=== PATIENT | male | born 2000 | race Caucasian/White ===

== ENCOUNTER 2021-06-20 23:39 | Emergency (ER) | payer OTHER, SELFPAY ==
[2021-06-20 23:40] VITALS: BP 135/86; PULSE 140; RESP 16; TEMP 37.3; O2SAT 100; BMI 34.9
--- NOTE | 2021-06-20 23:47 | ECG_ITS ---
APPROVED REPORT Exam: Resting ECG HR:146 bpm ECG Measurements Heart Rate 146 AXES NV 129 P 49 QRSd 89 QRS 52 QT 289 T 116 QTc 373 Conclusion SINUS TACHYCARDIA, POSSIBLE ATRIAL FLUTTER ST DEVIATION AND MODERATE T-WAVE ABNORMALITY, CONSIDER LATERAL ISCHEMIA [-0.1+ mV T-WAVE IN I/aVL/V5/V6] ABNORMAL ECG UNCONFIRMED REPORT Electronically signed by : Al Andrade MD 06/23/2021 17:59:46
--- NOTE | 2021-06-20 23:47 | XR_ITS ---
PROCEDURE INFORMATION: Exam: XR Chest Exam date and time: 06/20/2021 11:45 PM Age: 20 years old Clinical indication: Sternal or substernal pain; Additional info: Chest pain TECHNIQUE: Imaging protocol: XR of the chest. Views: 2 views. COMPARISON: No relevant prior studies available. FINDINGS: Lungs: There is mild pulmonary venous distension. Hazy opacities noted throughout both mid and lower lungs. Pleural spaces: No convincing pleural effusion on either side. Heart/Mediastinum: Prominent transverse cardiac diameter. Vasculature: Mildly prominent azygos arch measures up to 1.2 cm. Bones/joints: Unremarkable. IMPRESSION: Hazy opacities noted throughout both mid to lower lungs with prominent cardiac silhouette. Even in this young patient, heart failure and pulmonary edema are not excluded. Alternatively, findings may represent pneumonitis and pericardial effusion.
[2021-06-21 00:05] LABS: Basophils # 0.2 K/mm3 (0-0.2); Basophils % 2.5 % (0.1-2.0); Eosinophils # 0.1 K/mm3 (0.0-0.4); Eosinophils % 0.9 % (0.1-12.0); Hematocrit 41.9 % (42.0-52.0); Hemoglobin 14.2 g/dL (14.1-18.0); Lymphocytes # 2.9 K/mm3 (0.7-4.5); Lymphocytes % 32.4 % (10-50); Mean Corpuscular HGB Conc 33.8 g/dL (31.8-35.4); Mean Corpuscular Volume 82.7 fl (80-94); Mean Platelet Volume 8.6 fl (7.4-10.4); Monocytes # 0.4 K/mm3 (0.1-1.0); Monocytes % 4.9 % (1.7-9.3); Neutrophils # 5.3 K/mm3 (1.8-7.8); Neutrophils % 59.4 % (37.0-80.0); Platelet Count 428 K/mm3 (142-424); Red Blood Count 5.07 M/mm3 (4.60-6.20); White Blood Count 8.9 K/mm3 (4.8-10.8)
[2021-06-21 00:11] LABS: Alanine Aminotransferase 139 U/L (12-78); Albumin Level 3.7 g/dl (3.5-5.0); Alkaline Phosphatase 55 U/L (38-126); Anion Gap 12.8 mEq/L (5-15); Aspartate Amino Transferase 116 U/L (17-59); Bilirubin,Direct 0.1 mg/dl (0.0-0.4); Bilirubin,Indirect 0.4 mg/dL (0.0-0.9); Bilirubin,Total 0.5 mg/dl (0.2-1.3); Bilirubin,Unconjugated 0.4 mg/dL (0.0-1.1); Blood Urea Nitrogen 13 mg/dl (9-20); Calcium 8.9 mg/dl (8.4-10.2); Carbon Dioxide 22 mmol/L (22.0-30.0); Chloride 108 mmol/L (98-107); Creatinine Clearance Estimated 248 mL/min (50-200); Estimated Glomerular Filt Rate 122 ml/min (>60); GFR (African American) 148 ML/MIN (>60); Glucose 110 mg/dl (74-100); Lactic Acid 1.3 mmol/L (0.7-2.1); Potassium 3.8 mmoL/L (3.5-5.1); Sodium 139 mmol/L (136-145); Total Protein,Serum 6.6 g/dl (6.3-8.2)
[2021-06-21 00:16] LABS: C-Reactive Protein 3.9 mg/L (0-4)
[2021-06-21 00:20] VITALS: BP 109/75; PULSE 127; RESP 33; O2SAT 91
[2021-06-21 00:25] LABS: Troponin I 0.04 ng/ml (0.00-0.034)
[2021-06-21 00:29] LABS: Erythrocyte Sedimentation Rate 16 mm/hr (0-15)
[2021-06-21 00:30] LABS: Procalcitonin 0.042 ng/mL (0.0-2.0)
[2021-06-21 00:50] LABS: Coronavirus 19, PCR Not Detected (NotDetected); Influenza A, PCR Not Detected (NotDetected); Influenza B, PCR Not Detected (NotDetected)
--- NOTE | 2021-06-21 01:07 | PC.NURSE ---
ER speaking with pt at this time
--- NOTE | 2021-06-21 01:40 | HMH.EDCP ---
ED Disposition Clinical Impression: CHF (congestive heart failure) Qualifiers: Heart failure type: unspecified Heart failure chronicity: acute Qualified Code(s): I50.9 - Heart failure, unspecified Disposition: Home, Self-Care Condition on Discharge: Good Instructions: DI for Atypical Chest Pain Additional Instructions: see card at 0900 Referrals: Provider,Referral, [Primary Care Provider] - - Critical Care Critical Care Time: No Attestation: On 06/20/21, the high probability of a clinically significant, sudden or life threatening deterioration of the following system(s) required my full and direct attention, intervention and personal management. The time I documented below is in addition to time spent performing reported procedures but includes the following listed in this critical care notation. Medical Decision Making - Medical Records Medical records reviewed: Yes: I reviewed the patient's medical records. - Jonathan Inquiry Pt receiving controlled substance: No Vital Signs: 06/20/21 23:40 06/21/21 00:20 06/21/21 01:45 Temperature 99.1 F Temperature Source Oral Pulse Rate 127 H 70 Pulse Rate [Left Radial] 140 H Respiratory Rate 16 33 H 27 H Blood Pressure 109/75 L 123/92 H Blood Pressure [Right Arm] 135/86 Blood Pressure Mean [Right Arm] 102 Blood Pressure Source [Right Arm] Automatic Cuff Blood Pressure Position [Right Arm] Sitting 02 Sat by Pulse Oximetry 100 91 L 95 Oxygen Delivery Method Room Air Room Air - Lab Data Lab results reviewed: Yes: I reviewed the patient's lab results. Lab Results 06/20/21 23:50: WBC 8.9, RBC 5.07, Hgb 14.2, Hct 41.9 L, MCV 82.7, MCH 28.0, MCHC 33.8, RDW 14.0, Plt Count 428 H, MPV 8.6, Neut % (Auto) 59.4, Lymph % (Auto) 32.4, [place] % (Auto) 4.9, Eos % (Auto) 0.9, Baso % (Auto) 2.5 H, Neut # (Auto) 5.3, Lymph # (Auto) 2.9, [place] # (Auto) 0.4, Eos # (Auto) 0.1, Baso # (Auto) 0.2, ESR 16 H 06/20/21 23:50: Sodium 139, Potassium 3.8, Chloride 108 H, Carbon Dioxide 22, Anion Gap 12.8, BUN 13, Creatinine 0.80, Estimated Creat Clear 248, Estimated GFR 122, Est GFR ( Amer) 148, Glucose 110 H, Calcium 8.9, Total Bilirubin 0.5, Direct Bilirubin 0.1, Conjugated Bilirubin 0.0, Indirect Bilirubin 0.4, Unconjugated Bilirubin 0.4, AST 116 H, ALT 139 H, Alkaline Phosphatase 55, Troponin I 0.04 H, C-Reactive Protein 3.9, Total Protein 6.6, Albumin 3.7, Procalcitonin 0.042 06/20/21 23:50: Lactate 1.3 06/20/21 23:50: Total Creatine Kinase 153, NT-Pro-B Natriuret Pep 5640 H, Amylase 62, Lipase 78 06/21/21 00:01: SARS-CoV-2 (PCR) Not detected, Influenza A Untype (PCR) Not detected, Influenza Type B (PCR) Not detected 06/21/21 02:30: Troponin I 0.05 H Result diagrams: 06/20/21 23:50 06/20/21 23:50 Orders (Tests/Meds): ED MEDICATIONS Generic Name Dose Route Start Last Admin Trade Name Freq PRN Reason Stop Dose Admin Sodium Chloride 8 ml 06/21/21 01:47 Sodium Chloride 0.9% 10ml Vial IV 07/21/21 01:46 NEEDED PRN dilute pepcid Discontinued Medications Generic Name Dose Route Start Last Admin Trade Name Freq PRN Reason Stop Dose Admin Famotidine 20 mg 06/21/21 01:47 06/21/21 01:53 Famotidine 20mg/2ml Vial IV 06/21/21 01:48 20 mg ONCE ONE Administration Furosemide 40 mg 06/21/21 01:42 06/21/21 01:45 Furosemide 40mg/4ml Vial IV 06/21/21 01:43 40 mg ONCE ONE Administration Iopamidol 70 ml 06/21/21 02:07 06/21/21 02:08 Iopamidol-370 (76%);100ml Bottle IV 06/21/21 02:08 70 ml ONCE ONE Administration Metoclopramide HCl 10 mg 06/21/21 01:47 06/21/21 01:53 Metoclopramide Hcl 10mg/2ml Vial IVP 06/21/21 01:48 10 mg ONCE ONE Administration Sodium Chloride 40 ml 06/21/21 02:07 06/21/21 02:08 0.9 % Sodium Chloride 50 Ml Vial IV 06/21/21 02:08 40 ml ONCE ONE Administration Sodium Chloride 10 ml 06/21/21 02:07 06/21/21 02:08 Sodium Chloride 0.9% 10ml Syr (Rad Only) IV 06/21/21 02:08 1
--- NOTE | 2021-06-21 01:41 | CT_ITS ---
PROCEDURE INFORMATION: Exam: CTA Chest With Contrast Exam date and time: 06/21/2021 1:57 AM Age: 20 years old Clinical indication: Shortness of breath; Sternal or substernal pain; Additional info: SOA, chest pain TECHNIQUE: Imaging protocol: Computed tomographic angiography of the chest with contrast. 3D rendering (Not supervised by radiologist): MIP and/or 3D reconstructed images were created by the technologist. Radiation optimization: All CT scans at this facility use at least one of these dose optimization techniques: automated exposure control; mA and/or kV adjustment per patient size (includes targeted exams where dose is matched to clinical indication); or iterative reconstruction. Contrast material: ISOVUE 370; Contrast volume: 70 ml; Contrast route: INTRAVENOUS (IV); COMPARISON: CR XR CHEST 2V 06/20/2021 11:45 PM FINDINGS: Pulmonary arteries: Normal. No pulmonary emboli. Aorta: Unremarkable. No aortic aneurysm. No aortic dissection. Lungs: Extensive alveolar opacity is seen throughout both lungs. Septal lines are noted at the apices and bases. Findings are concerning for pulmonary edema. Pleural spaces: Bilateral pleural effusions are evident. Heart: Heart is enlarged with particular prominence of the left ventricle. There is atrial caval reflux noted. RV/LV is normal measuring 0.9. No pericardial effusion. Lymph nodes: Unremarkable. No enlarged lymph nodes. Gallbladder and bile ducts: Contracted postprandial gallbladder. Kidneys and ureters: Normal visualized kidneys. Bones/joints: Unremarkable. No acute fracture. Soft tissues: Unremarkable. IMPRESSION: 1. No evidence of acute pulmonary embolism. 2. Cardiomegaly with prominent left ventricle. Pulmonary edema and bilateral pleural effusions. Findings suggest heart failure. Query cardiomyopathy or myocarditis. No structural congenital heart disease appreciated.
[2021-06-21 01:45] VITALS: BP 123/92; PULSE 70; RESP 27; O2SAT 95
[2021-06-21 02:01] LABS: Amylase 62 U/L (30-110); Creatine Kinase 153 U/L (55-170); Lipase 78 U/L (23-300)
--- NOTE | 2021-06-21 02:03 | PC.NURSE ---
PT AND FAMILY UPDATED. LASIX GIVEN AND PATIENT AWARE THAT ALL VOIDING WILL NEED TO BE IN URINAL FOR ACCURATE MEASUREMENT. WILL CONTINUE TO MONITOR.
--- NOTE | 2021-06-21 02:10 | PC.NURSE ---
Called to room per Dr. King, patient requesting to go home. Explained to patient that MD felt he needed further work-up and requested admission. Patient declined stated he wanted to leave. Sister requested to talk to patient.
[2021-06-21 02:11] LABS: NT Pro Brain Natriuretic Pep. 5640 pg/mL (0-125)
--- NOTE | 2021-06-21 02:25 | PC.NURSE ---
Dr. King on phone with [facility], patient requesting to leave. Patient agreed to have 2 nd trop and to see Dr. Uriostegui in am to have echo.
--- NOTE | 2021-06-21 02:53 | PC.NURSE ---
PT REFUSES FURTHER MONITORING AT THIS TIME. PT CONTINUES TO WANT TO LEAVE. SISTER REFUSES TO LEAVE WITH PATIENT AT THIS TIME. WCM.
--- NOTE | 2021-06-21 03:00 | PC.NURSE ---
Dr. King and this RN at bedside s/w pt & his sister about tests and education. Pt is definitely willing to stay for 2nd troponin results.
[2021-06-21 03:01] LABS: Troponin I 0.05 ng/ml (0.00-0.034)
--- NOTE | 2021-06-21 03:16 | PC.NURSE ---
Dr. King s/w Dr. Uriostegui
--- NOTE | 2021-06-21 03:46 | PC.NURSE ---
PT AWARE OF PLAN TO DISCHARGE. FAMILY AT BEDSIDE. WCM.
[2021-06-21 03:48] VITALS: BP 123/92; PULSE 80; RESP 18; TEMP 36.8; O2SAT 97
== END 2021-06-21 03:52 | disposition home or self-care (01) ==
PROVIDERS: Emergency Provider Emergency Medicine
DX: R07.9 Chest pain, unspecified (principal)
CPT/HCPCS: 71046; 71275; 80048; 80076; 82150; 82550; 83605; 83690; 83880; 84145; 84484; 85025; 85651; 86140; 87040; 93005; 96375; C9803; Q9967; U0003; U0005

== ENCOUNTER → 2021-06-21 09:00 | Outpatient (CLI) | payer OTHER, SELFPAY ==
--- NOTE | 2021-06-21 09:44 | CA_ITS ---
APPROVED REPORT EXAM: Comprehensive 2D, Doppler, and color-flow Echocardiogram [employer]: Hetal Gibbs CRT Ht: 6 ft 1 in Wt: 265lbs BSA: 2.42 BP: 123/92 mmHg Indications: Congestive Heart Failure, Shortness of Breath, Obesity, Pericardial Effusion, Fatigue 2D Dimensions LVOT 2.10 cm (M/F) 1.5-2.5 LA Volume 65.60 mL LA Volume Index 27.00 mL/m2 (M/F) 16-34 M-Mode Dimensions RVDd 4.03 cm (0.9-2.6) LA Diam 4.36 cm (1.9-4.0) LVDd 6.84 cm (3.5-5.7) Ao Diam 3.71 cm (2.0-3.7) LVDs 6.32 cm (3.5-5.7) IVSd 1.05 cm (0.6-1.1) PWd 0.60 cm (0.6-1.1) EF (Teich) 16.40% FS 7.60% EDV (Teich) 242.40 mL TAPSE 1.70 (<1.7) ESV (Teich) 202.60 mL LV Diastology MED E' 3.20 (< 7 cm/sec) MED A' 6.00 cm/s LAT E' 6.40 (<10 cm/sec) LAT A' 8.60 cm/s Aortic Valve AO Peak GR. 3.20 mmHg Pulmonary Valve PV Peak Velocity 196.00 (50-150 cm/s) Tricuspid Valve TR P. Velocity 246.00 cm/s RAP Estimate 10.00 mmHg RVSP 34.30 mmHg Left Ventricle Left atrium is mildly enlarged, left ventricle is mildly dilated, severely reduced left ventricular systolic function, estimated ejection fraction 20%, left ventricle is globally hypokinetic, Doppler evidence of raised left ventricular end-diastolic pressure seen. Diastolic parameters are inconclusive. Doppler evidence of low cardiac output state is also seen. Right Ventricle Right atrium and right ventricle moderately enlarged, contractility right ventricle is moderately reduced. Aortic Valve Aortic valve is grossly normal there is no aortic stenosis, or aortic insufficiency. Mitral Valve Mitral valve grossly normal, there is mild mitral regurgitation. Tricuspid Valve Tricuspid valve grossly normal, there is mild tricuspid regurgitation, tricuspid regurgitation jet velocity is inadequate for calculation of the right ventricular systolic pressure. Pulmonic Valve Pulmonic valve is poorly visualized. Great Vessels Aortic root is normal size. Inferior vena cava is mildly dilated without significant inspiratory collapse. Pericardium There is trivial pericardial effusion noted. Conclusion 1. Biatrial enlargement, dilated left ventricle, severely reduced left ventricular systolic function, estimated ejection fraction 20%, left ventricle is globally hypokinetic. Doppler evidence of raise left ventricular end-diastolic pressure and low cardiac output state seen. 2. Moderately enlarged right ventricle with moderate reduction right ventricular systolic function. 3. Mild mitral and tricuspid regurgitation. 4. Small pericardial effusion noted. 5. Inferior vena cava is mildly dilated without significant inspiratory collapse. Electronically signed by : Kaiser Singleton MD 06/21/2021 11:43:30
== END ==
PROVIDERS: PCP Emergency Medicine; Visit Provider Emergency Medicine
DX: I50.9 Heart failure, unspecified (principal)
CPT/HCPCS: 93306

== ENCOUNTER 2021-06-21 11:24 | Inpatient (IN) | payer OTHER, SELFPAY ==
--- NOTE | 2021-06-21 11:40 | PC.NURSE ---
Pt. arrived to floor via walking escorted by reshma walker
[2021-06-21 11:41] VITALS: BP 138/88; PULSE 119; RESP 18; TEMP 36.7; O2SAT 97; BMI 32.8
[2021-06-21 12:15] VITALS: PULSE 130
[2021-06-21 13:33] LABS: Magnesium 1.9 mg/dl (1.6-2.3)
--- NOTE | 2021-06-21 14:01 | HMH.CNCARD ---
History of Present Illness Consult date: 06/21/21 Requesting physician: Morro King Consult reason: congestive heart failure, shortness of breath Chief complaint: SOA Additional Medical History:: 1. Recent streptococcal infection, 06/16/2021 treated with Amoxicillin 2. Severe cardiomyopathy with ejection fraction of 17% A. Congestive heart failure 3. History of Covid infection, summer 2020 History of present illness: 20-year-old white male with known history of recent streptococcal infection presented to the emergency department last evening for shortness of breath. He was found to have evidence of congestive heart failure and was given IV Lasix with improvement in his symptoms to the point the patient was discharged home for follow-up today in our office. Echocardiogram today showed severe cardiomyopathy with ejection fraction of 17%. He was subsequently seen in our office and admitted for further evaluation and treatment. [facility] History Medical History: Reports:: Congestive Heart Failure Denies:: Diabetes Mellitus Type 1, Diabetes Mellitus Type 2 *Have you ever received a pneumonia vaccine?: No *Have you received a flu vaccine this season?: No Other Surgeries: Yes: No Previous Surgery - *Social History Smoking Status: Never smoker Tobacco Type: smokeless tobacco Alcohol Intake: current Alcohol Intake Frequency:: holidays/special occasions only Substance Use Type: denies use *Occupational Status:: other Household Members: family *Travel in the last 8 weeks: None Family Hx:: Cancer, Coronary Artery Disease, Diabetes, Heart Attack, Hyperlipidemia, Hypertension, Stroke Meds Home Medications Medication Instructions Recorded Confirmed Type Amoxicillin [Amoxicillin 875MG 875 mg PO Q12H 06/20/21 06/21/21 History Tab] Allergies Allergy/AdvReac Type Severity Reaction Status Date / Time No Known Allergies Allergy Verified 06/21/21 10:56 Exam Vital signs and Labs for Last 24 Hours: Temp Pulse Resp BP Pulse Ox 98.1 F 119 H 18 138/88 97 06/21/21 11:41 06/21/21 11:41 06/21/21 11:41 06/21/21 11:41 06/21/21 11:41 Laboratory Results - last 24 hr 06/21/21 : Magnesium 1.9 I & O for Last 24 hours: Intake & Output 06/19/21 06/20/21 06/21/21 06/22/21 11:59 11:59 11:59 11:59 Weight 249 lb 5 oz - Constitutional no acute distress - *Routine HEENT Exam Head: Present: normocephalic Eye: Present: EOMI, PERRL ENT: Present: mucous membranes moist - *Routine Neck Exam Present: supple. Absent: lymphadenopathy - *Routine Respiratory Exam Present: CTA bilaterally - *Routine Cardiovascular Exam Present: RRR - *Routine Abdominal Exam Present: soft, normoactive bowel sounds. Absent: tenderness - *Routine Extremities Exam Absent: cyanosis, clubbing, edema - *Routine Skin Exam Present: warm. Absent: rash - *Routine Neurological Exam Present: alert, oriented X3 Review of Systems - Review of Systems Review of systems:: pertinent systems reviewed and negative unless documented below - *Cardiovascular Reports shortness of breath, Reports shortness of breath with activity - *Respiratory Reports shortness of breath, Reports shortness of breath with activity Assessment and Plan (1) CHF (congestive heart failure) Status: Acute Category: Medical Code(s): I50.9 - Heart failure, unspecified (2) Viral myocarditis Status: Acute Category: Medical Code(s): B33.22 - Viral myocarditis (3) Cardiomyopathy Status: Acute Qualifiers: Cardiomyopathy type: viral Qualified Code(s): B33.24 - Viral cardiomyopathy Category: Medical Code(s): I42.9 - Cardiomyopathy, unspecified - Assessment and plan all Dx Assessment and Plan for all problems:: 1. Congestive heart failure secondary to viral myocarditis/cardiomyopathy. Patient was admitted to [facility] for institution of medical therapy and treatment. He will be start
[2021-06-21 16:00] VITALS: BP 97/69; PULSE 120; PULSE 123; RESP 16; TEMP 36.8; O2SAT 96
--- NOTE | 2021-06-21 18:00 | HMH.HP ---
*Admission Date: 06/21/21 *Chief complaint: chf *History of present illness: 20-year-old white male with known history of recent streptococcal infection presented to the emergency department last evening for shortness of breath. He was found to have evidence of congestive heart failure and was given IV Lasix with improvement in his symptoms to the point the patient was discharged home for follow-up today in our office. Echocardiogram today showed severe cardiomyopathy with ejection fraction of 17%. He was subsequently seen in our office and admitted for further evaluation and treatment. above per presales consultant Patient has been on a regimen of Augmentin 875 twice daily. No muffled voice, no significant cervical lymphadenopathy, no muffled voice. Patient had COVID last summer. Uneventful recovery. His mother relays that he was a term , no pediatric issues, no history of murmur or arrhythmia, no major illnesses. Patient denies alcohol or tobacco. An echo was done showing a significant cardiomyopathy with an EF of 17%. [facility] History Medical History: Reports:: Congestive Heart Failure Denies:: Diabetes Mellitus Type 1, Diabetes Mellitus Type 2 *Have you ever received a pneumonia vaccine?: No *Have you received a flu vaccine this season?: No Other Surgeries: Yes: No Previous Surgery - *Social History Smoking Status: Never smoker Tobacco Type: smokeless tobacco Alcohol Intake: current Alcohol Intake Frequency:: holidays/special occasions only Substance Use Type: denies use *Occupational Status:: other Household Members: family *Travel in the last 8 weeks: None Family Hx:: Cancer, Coronary Artery Disease, Diabetes, Heart Attack, Hyperlipidemia, Hypertension, Stroke Review of Systems - Constitutional Reports lack of energy - Eyes Denies change in vision - ENT Denies bleeding gums - *Cardiovascular Reports shortness of breath, Reports shortness of breath with activity, Reports irregular heart rhythm, Reports rapid, pounding, or irregular heartbeat, Reports fast heart rate, Denies chest pain, Denies generalized swelling, Denies radiating jaw, neck or arm pain - *Respiratory Reports shortness of breath, Reports shortness of breath with activity, Denies cough - *Gastrointestinal Denies abdominal pain - *Genitourinary Denies difficulty urinating - *Musculoskeletal Denies abnormal walking - Integumentary/Breasts Denies yellowing of the skin - *Neurologic Denies behavioral changes, Denies localized weakness - Psychiatric Denies behavioral changes - Endocrine Reports rapid, pounding, or irregular heartbeat - Hematologic/Lymphatic Denies easy bleeding, Denies easy bruising - Allergic/Immunologic Denies hives Meds Home Medications Medication Instructions Recorded Confirmed Type Amoxicillin/Potassium Clav 1 tab PO BID 06/21/21 06/21/21 History [Amox-Clav 875-125 mg Tablet] Allergies Allergy/AdvReac Type Severity Reaction Status Date / Time No Known Allergies Allergy Verified 06/21/21 10:56 Exam Vital signs and Labs for Last 24 Hours: Temp Pulse Resp BP Pulse Ox 98.2 F 123 H 16 97/69 L 96 06/21/21 16:00 06/21/21 16:00 06/21/21 16:00 06/21/21 16:00 06/21/21 16:00 Laboratory Results - last 24 hr 06/21/21 : Magnesium 1.9 I & O for Last 24 hours: Intake & Output 06/18/21 06/19/21 06/20/21 06/21/21 23:59 23:59 23:59 23:59 Weight 249 lb 5 oz - Constitutional no acute distress - *Routine HEENT Exam Head: Present: normocephalic Eye: Present: EOMI, PERRL ENT: Present: mucous membranes moist - *Routine Neck Exam Present: supple, trachea midline. Absent: JVD, lymphadenopathy, tenderness, meningismus - *Routine Respiratory Exam Present: CTA bilaterally - *Routine Cardiovascular Exam Present: tachycardia, ectopic - *Routine Abdominal Exam Present: soft, normoactive bowel sounds. Absent: tenderness - *Routine Rectal
[2021-06-21 20:00] VITALS: BP 107/76; PULSE 115; PULSE 127; RESP 18; TEMP 37.1; O2SAT 99
[2021-06-22] VITALS: BP 110/62; PULSE 100; PULSE 106; RESP 17; TEMP 36.9; O2SAT 95
[2021-06-22 04:00] VITALS: BP 101/59; PULSE 110; RESP 17; TEMP 36.7; O2SAT 96
--- NOTE | 2021-06-22 04:22 | PC.NURSE ---
Pt has rested well this shift. No c/o chest pain or SOA. He remains on RA and O2 sats have been 95-99%. SBP has been between 101-110. Tele has shown sinus tach and NSR. HR has been between 100-126 Pt used urinal and BSC this shift.
[2021-06-22 05:00] VITALS: BMI 33.2
--- NOTE | 2021-06-22 06:00 | XR_ITS ---
PROCEDURE INFORMATION: Exam: XR Chest Exam date and time: 06/22/2021 5:28 AM Age: 20 years old Clinical indication: Cardiovascular condition or disease; Congestive heart failure (chf); Cause unknown TECHNIQUE: Imaging protocol: XR of the chest. Views: 1 view. COMPARISON: CR XR CHEST 2V 06/20/2021 11:45 PM FINDINGS: Lungs: Slightly improved patchy bilateral airspace opacities, right greater than left. Pleural spaces: Unremarkable. No pleural effusion. No pneumothorax. Heart/Mediastinum: Cardiomegaly. Bones/joints: Unremarkable. IMPRESSION: Slightly improved bilateral airspace opacities.
--- NOTE | 2021-06-22 07:23 | HMH.PHAVTE ---
[facility] Pharmacy VTE Monitoring - Patient Demographics Admission date: 06/22/21 Report Date: 06/22/21 Time: 07:23 Allergies/Adverse Reactions: Patient Allergies No Known Allergies Allergy (Verified 06/21/21 10:56) Height: 1.85 m Weight: 113.67 kg Patient Problems: Current Active Problems CHF (congestive heart failure) (Acute) Cardiomyopathy (Acute) Viral myocarditis (Acute) - VTE Risk Was VTE Risk Assessment Performed: Yes VTE Score: 2 Clinical Trial Participant: No - Prophylaxis VTE Prophylaxis Ordered?: Yes Types of VTE Prophylaxis: TEDS Knee High, Pharmacological (xarelto) Pharmacologic Type: Other
[2021-06-22 07:36] LABS: Chloride 103 mmol/L (98-107)
[2021-06-22 07:37] LABS: Sodium 137 mmol/L (136-145)
[2021-06-22 07:39] LABS: Blood Urea Nitrogen 12 mg/dl (9-20); Creatinine Clearance Estimated 209 mL/min (50-200); Estimated Glomerular Filt Rate 107 ml/min (>60); GFR (African American) 129 ML/MIN (>60)
[2021-06-22 07:40] LABS: Carbon Dioxide 27 mmol/L (22.0-30.0); Glucose 107 mg/dl (74-100)
[2021-06-22 08:00] VITALS: BP 105/60; PULSE 67; PULSE 90; RESP 18; TEMP 36.8; O2SAT 95
--- NOTE | 2021-06-22 08:55 | HMH.ACPN2 ---
Internal Medicine - PN: Subj *Date: 06/22/21 *Time: 19:37 Interval history: relays uneventful night Exam Vital signs and Labs for Last 24 Hours: Temp Pulse Resp BP Pulse Ox 98.1 F 110 H 17 101/59 L 96 06/22/21 04:00 06/22/21 04:00 06/22/21 04:00 06/22/21 04:00 06/22/21 04:00 Laboratory Results - last 24 hr 06/21/21 15:50: Influenza Type A Ag Negative, Influenza Type B Ag Negative 06/21/21 : Magnesium 1.9 06/22/21 07:02: Sodium 137, Potassium 4.0, Chloride 103, Carbon Dioxide 27, Anion Gap 11.0, BUN 12, Creatinine 0.90, Estimated Creat Clear 209, Estimated GFR 107, Est GFR ( Amer) 129, Glucose 107 H, Calcium 9.0 I & O for Last 24 hours: Intake & Output 06/19/21 06/20/21 06/21/21 06/22/21 23:59 23:59 23:59 23:59 Output Total 400 / 400 Balance -400 / -400 Weight 249 lb 5 oz 250 lb 9.6 oz - Constitutional no acute distress - *Routine HEENT Exam Head: Present: normocephalic Eye: Present: EOMI, PERRL ENT: Present: mucous membranes moist - *Routine Neck Exam Present: supple. Absent: lymphadenopathy - *Routine Respiratory Exam Present: CTA bilaterally - *Routine Cardiovascular Exam Present: RRR - *Routine Abdominal Exam Present: soft, normoactive bowel sounds. Absent: tenderness - *Routine Extremities Exam Absent: cyanosis, clubbing, edema - *Routine Skin Exam Present: warm. Absent: rash - *Routine Neurological Exam Present: alert, oriented X3 Assessment and Plan (1) CHF (congestive heart failure) Status: Acute Category: Medical Code(s): I50.9 - Heart failure, unspecified (2) Viral myocarditis Status: Acute Category: Medical Code(s): B33.22 - Viral myocarditis (3) Cardiomyopathy Status: Acute Qualifiers: Cardiomyopathy type: viral Qualified Code(s): B33.24 - Viral cardiomyopathy Category: Medical Code(s): I42.9 - Cardiomyopathy, unspecified - Assessment and plan all Dx Assessment and Plan for all problems:: diuresis rhythm monitoring coreg/entresto lifevest at d/c giselto
--- NOTE | 2021-06-22 09:31 | HMH.PNCARD ---
Subjective Date: 06/22/21 Time: 09:31 Principal diagnosis: CHF, cardiomyopathy Interval history: 20-year-old white male in bed in no acute distress. Shortness of breath has improved. Denies any chest pain, pressure or tightness. Patient does relate voiding at least twice without having anyone measure the output. Exam Vital signs and Labs for Last 24 Hours: Temp Pulse Resp BP Pulse Ox 98.1 F 110 H 17 101/59 L 96 06/22/21 04:00 06/22/21 04:00 06/22/21 04:00 06/22/21 04:00 06/22/21 04:00 Laboratory Results - last 24 hr 06/21/21 15:50: Influenza Type A Ag Negative, Influenza Type B Ag Negative 06/21/21 : Magnesium 1.9 06/22/21 07:02: Sodium 137, Potassium 4.0, Chloride 103, Carbon Dioxide 27, Anion Gap 11.0, BUN 12, Creatinine 0.90, Estimated Creat Clear 209, Estimated GFR 107, Est GFR ( Amer) 129, Glucose 107 H, Calcium 9.0 I & O for Last 24 hours: Intake & Output 06/19/21 06/20/21 06/21/21 06/22/21 11:59 11:59 11:59 11:59 Output Total 400 / 400 Balance -400 / -400 Weight 249 lb 5 oz 250 lb 9.6 oz - Constitutional no acute distress - *Routine HEENT Exam Head: Present: normocephalic Eye: Present: EOMI, PERRL ENT: Present: mucous membranes moist - *Routine Neck Exam Present: supple. Absent: lymphadenopathy - *Routine Respiratory Exam Present: CTA bilaterally - *Routine Cardiovascular Exam Present: RRR, gallop (summation gallop noted.), tachycardia - *Routine Abdominal Exam Present: soft, normoactive bowel sounds. Absent: tenderness - *Routine Extremities Exam Absent: cyanosis, clubbing, edema - *Routine Skin Exam Present: warm. Absent: rash - *Routine Neurological Exam Present: alert, oriented X3 Progress Note: A&P (1) CHF (congestive heart failure) Status: Acute (2) Viral myocarditis Status: Acute (3) Cardiomyopathy Status: Acute Assessment and Plan for All Diagnoses:: 1. Congestive heart failure secondary to viral myocarditis/cardiomyopathy. On Coreg and Entresto along with IV Lasix and supplemental potassium. Cardiac monitoring during his stay. LifeVest will be ordered and applied prior to discharge. 2. Due to severity of cardiomyopathy, with EF17%, started on Xarelto 10mg daily.
[2021-06-22 12:00] VITALS: BP 123/62; PULSE 110; PULSE 69; RESP 17; TEMP 36.5; O2SAT 97
[2021-06-22 14:58] VITALS: BMI 32.3
[2021-06-22 16:00] VITALS: BP 122/62; PULSE 100; PULSE 78; RESP 19; TEMP 36.8; O2SAT 98
[2021-06-22 20:00] VITALS: BP 110/72; PULSE 100; PULSE 120; PULSE 121; RESP 20; TEMP 36.3; O2SAT 99
[2021-06-23] VITALS: BP 102/66; PULSE 110; PULSE 116; RESP 18; TEMP 36.4; O2SAT 94
[2021-06-23 04:00] VITALS: BP 92/60; PULSE 105; PULSE 110; RESP 20; TEMP 36.5; O2SAT 92
[2021-06-23 04:41] VITALS: BMI 31.8
[2021-06-23 06:54] LABS: Blood Urea Nitrogen 14 mg/dl (9-20); Calcium 8.7 mg/dl (8.4-10.2); Carbon Dioxide 28 mmol/L (22.0-30.0); Chloride 100 mmol/L (98-107); Creatinine Clearance Estimated 207 mL/min (50-200); Estimated Glomerular Filt Rate 107 ml/min (>60); GFR (African American) 129 ML/MIN (>60); Glucose 103 mg/dl (74-100); Sodium 133 mmol/L (136-145)
[2021-06-23 07:16] LABS: Anion Gap 8.8 mEq/L (5-15); Potassium 3.8 mmoL/L (3.5-5.1)
--- NOTE | 2021-06-23 07:41 | HMH.PNCARD ---
Subjective Date: 06/23/21 Time: 07:41 Principal diagnosis: CHF, cardiomyopathy Interval history: 20-year-old white male in bed in no acute distress. Breathing continues to improve. LifeVest approval is pending. Exam Vital signs and Labs for Last 24 Hours: Temp Pulse Resp BP Pulse Ox 97.7 F 105 H 20 92/60 L 92 L 06/23/21 04:00 06/23/21 04:00 06/23/21 04:00 06/23/21 04:00 06/23/21 04:00 Laboratory Results - last 24 hr 06/22/21 07:02: Carbon Dioxide 27, Anion Gap 11.0, BUN 12, Creatinine 0.90, Estimated Creat Clear 209, Estimated GFR 107, Est GFR ( Amer) 129, Glucose 107 H, Calcium 9.0 06/23/21 06:35: Sodium 133 L, Potassium 3.8, Chloride 100, Carbon Dioxide 28, Anion Gap 8.8, BUN 14, Creatinine 0.90, Estimated Creat Clear 207, Estimated GFR 107, Est GFR ( Amer) 129, Glucose 103 H, Calcium 8.7 I & O for Last 24 hours: Intake & Output 06/20/21 06/21/21 06/22/21 06/23/21 11:59 11:59 11:59 11:59 Intake Total 120 / 120 480 / 480 Output Total 400 / 400 1650 / 1650 Balance -280 / -280 -1170 / -1170 Weight 249 lb 5 oz 250 lb 9.6 oz 248 lb 4.8 oz - *Routine Respiratory Exam Present: CTA bilaterally - *Routine Cardiovascular Exam Present: RRR, gallop (Summation gallop noted) - *Routine Extremities Exam Absent: cyanosis, clubbing, edema - *Routine Neurological Exam Present: alert, oriented X3 Progress Note: A&P (1) CHF (congestive heart failure) Status: Acute (2) Viral myocarditis Status: Acute (3) Cardiomyopathy Status: Acute Assessment and Plan for All Diagnoses:: 1. Viral myocarditis with severe cardiomyopathy, continue Entresto and carvedilol therapy. Anticipate LifeVest approval today with planned discharge home later this afternoon. 2. Systolic congestive heart failure, continue Lasix 40 mg twice daily. Will discontinue potassium and start spironolactone 25 mg twice daily. 3. Anticoagulation with Xarelto 10 mg daily due to severe cardiomyopathy 4. Recent strep infection, patient is on Augmentin.
[2021-06-23 08:00] VITALS: BP 123/54; PULSE 110; RESP 24; TEMP 36.9; O2SAT 94
[2021-06-23 08:18] LABS: Antistreptolysin O Ab 848.1 IU/mL (0.0-200.0)
[2021-06-23 12:00] VITALS: BP 130/80; PULSE 107; PULSE 110; RESP 22; TEMP 36.6; O2SAT 96
--- NOTE | 2021-06-23 15:02 | HMH.ACPN2 ---
Internal Medicine - PN: Subj *Date: 06/23/21 *Time: 08:00 Exam Vital signs and Labs for Last 24 Hours: Temp Pulse Resp BP Pulse Ox 97.9 F 107 H 22 130/80 96 06/23/21 12:00 06/23/21 12:00 06/23/21 12:00 06/23/21 12:00 06/23/21 12:00 Laboratory Results - last 24 hr 06/21/21 13:30: Anti-Streptolysin O Ab 848.1 H 06/23/21 06:35: Sodium 133 L, Potassium 3.8, Chloride 100, Carbon Dioxide 28, Anion Gap 8.8, BUN 14, Creatinine 0.90, Estimated Creat Clear 207, Estimated GFR 107, Est GFR ( Amer) 129, Glucose 103 H, Calcium 8.7 I & O for Last 24 hours: Intake & Output 06/21/21 06/22/21 06/23/21 06/24/21 11:59 11:59 11:59 11:59 Intake Total 120 / 120 480 / 480 Output Total 400 / 400 2950 / 2950 Balance -280 / -280 -2470 / -2470 Weight 249 lb 5 oz 250 lb 9.6 oz 248 lb 4.8 oz Microbiology Reports for the Last 24 Hours: Microbiology 06/21/21 15:50 Throat Throat Culture - Preliminary - Constitutional no acute distress - *Routine HEENT Exam Head: Present: normocephalic Eye: Present: PERRL ENT: Present: mucous membranes moist - *Routine Neck Exam Present: supple. Absent: lymphadenopathy - *Routine Respiratory Exam Present: CTA bilaterally - *Routine Cardiovascular Exam Present: RRR - *Routine Abdominal Exam Present: soft, normoactive bowel sounds. Absent: tenderness - *Routine Extremities Exam Absent: cyanosis, clubbing, edema - *Routine Skin Exam Present: warm. Absent: rash - *Routine Neurological Exam Present: alert, oriented X3 Assessment and Plan (1) CHF (congestive heart failure) Status: Acute Category: Medical Code(s): I50.9 - Heart failure, unspecified (2) Viral myocarditis Status: Acute Category: Medical Code(s): B33.22 - Viral myocarditis (3) Cardiomyopathy Status: Acute Qualifiers: Cardiomyopathy type: viral Qualified Code(s): B33.24 - Viral cardiomyopathy Category: Medical Code(s): I42.9 - Cardiomyopathy, unspecified - Assessment and plan all Dx Assessment and Plan for all problems:: rounded with dr pond all orders per dr pond pt needs a life vest waiting for approval cardiology to follow
[2021-06-23 16:00] VITALS: BP 124/76; PULSE 110; PULSE 73; RESP 20; TEMP 36.7; O2SAT 97
--- NOTE | 2021-06-23 18:22 | PC.NURSE ---
Pt has done fine this shift. No c/o SOB or chest pain. Pt remains on RA. Pt has ambulated independently t/o this shift. No other acute changes.
[2021-06-23 20:00] VITALS: BP 80/50; PULSE 110; PULSE 54; RESP 20; TEMP 36.8; O2SAT 97
[2021-06-24] VITALS (8 sets, daily range): BP systolic 87–138; BP diastolic 50–85; PULSE 90–121; RESP 14–20; TEMP 36.6–36.9; O2SAT 94–99; BMI 31.6
[2021-06-24 04:54] LABS: Anti-DNase B Strep Antibodies 257 U/mL (0-120)
--- NOTE | 2021-06-24 05:36 | PC.NURSE ---
Pt has been slightly hypotensive t/o shift with BP going as low a 80/50 manually. MD handyperson made aware. 2100 Entresto held and half of originally prescribed dose of carvedilol given per MD. Pt has remained asymptomatic. Pt has not voiced any concerns to staff. Call light within reach.
[2021-06-24 07:01] LABS: Basophils # 0.2 K/mm3 (0-0.2); Basophils % 1.7 % (0.1-2.0); Eosinophils # 0.1 K/mm3 (0.0-0.4); Eosinophils % 1.3 % (0.1-12.0); Hematocrit 42.6 % (42.0-52.0); Hemoglobin 14.7 g/dL (14.1-18.0); Lymphocytes # 2.5 K/mm3 (0.7-4.5); Lymphocytes % 27.3 % (10-50); Mean Corpuscular HGB Conc 34.4 g/dL (31.8-35.4); Mean Corpuscular Hemoglobin 28.4 pg (27.0-31.2); Mean Corpuscular Volume 82.4 fl (80-94); Mean Platelet Volume 8.6 fl (7.4-10.4); Monocytes # 0.5 K/mm3 (0.1-1.0); Monocytes % 5.8 % (1.7-9.3); Neutrophils # 5.8 K/mm3 (1.8-7.8); Platelet Count 438 K/mm3 (142-424); Red Blood Count 5.17 M/mm3 (4.60-6.20); Red Cell Distribution Width 14.2 % (11.5-17.5); White Blood Count 9.1 K/mm3 (4.8-10.8)
[2021-06-24 07:20] LABS: Anion Gap 10.7 mEq/L (5-15); Blood Urea Nitrogen 13 mg/dl (9-20); Calcium 8.8 mg/dl (8.4-10.2); Carbon Dioxide 28 mmol/L (22.0-30.0); Chloride 100 mmol/L (98-107); Creatinine Clearance Estimated 231 mL/min (50-200); Estimated Glomerular Filt Rate 122 ml/min (>60); GFR (African American) 148 ML/MIN (>60); Glucose 112 mg/dl (74-100); Potassium 3.7 mmoL/L (3.5-5.1); Sodium 135 mmol/L (136-145)
--- NOTE | 2021-06-24 09:42 | HMH.ACPN2 ---
Internal Medicine - PN: Subj *Date: 06/24/21 *Time: 08:10 Exam Vital signs and Labs for Last 24 Hours: Temp Pulse Resp BP Pulse Ox 98.1 F 110 H 14 107/64 L 97 06/24/21 08:00 06/24/21 08:00 06/24/21 08:00 06/24/21 08:00 06/24/21 08:00 Laboratory Results - last 24 hr 06/21/21 13:30: Anti-DNase B (Strep) 257 H 06/24/21 06:53: WBC 9.1, RBC 5.17, Hgb 14.7, Hct 42.6, MCV 82.4, MCH 28.4, MCHC 34.4, RDW 14.2, Plt Count 438 H, MPV 8.6, Neut % (Auto) 64.0, Lymph % (Auto) 27.3, [place] % (Auto) 5.8, Eos % (Auto) 1.3, Baso % (Auto) 1.7, Neut # (Auto) 5.8, Lymph # (Auto) 2.5, [place] # (Auto) 0.5, Eos # (Auto) 0.1, Baso # (Auto) 0.2 06/24/21 06:53: Sodium 135 L, Potassium 3.7, Chloride 100, Carbon Dioxide 28, Anion Gap 10.7, BUN 13, Creatinine 0.80, Estimated Creat Clear 231, Estimated GFR 122, Est GFR ( Amer) 148, Glucose 112 H, Calcium 8.8 I & O for Last 24 hours: Intake & Output 06/21/21 06/22/21 06/23/21 06/24/21 11:59 11:59 11:59 11:59 Intake Total 120 / 120 480 / 480 Output Total 400 / 400 2950 / 2950 1350 / 1350 Balance -280 / -280 -2470 / -2470 -1350 / -1350 Weight 249 lb 5 oz 250 lb 9.6 oz 248 lb 4.8 oz 246 lb 14.4 oz Microbiology Reports for the Last 24 Hours: Microbiology 06/21/21 15:50 Throat Throat Culture - Preliminary - Constitutional no acute distress - *Routine HEENT Exam Head: Present: normocephalic Eye: Present: PERRL ENT: Present: mucous membranes moist - *Routine Neck Exam Present: supple. Absent: lymphadenopathy - *Routine Respiratory Exam Present: CTA bilaterally - *Routine Cardiovascular Exam Present: RRR - *Routine Abdominal Exam Present: soft, normoactive bowel sounds. Absent: tenderness - *Routine Extremities Exam Absent: cyanosis, clubbing, edema - *Routine Skin Exam Present: warm. Absent: rash - *Routine Neurological Exam Present: alert, oriented X3 Assessment and Plan (1) CHF (congestive heart failure) Status: Acute Category: Medical Code(s): I50.9 - Heart failure, unspecified (2) Viral myocarditis Status: Acute Category: Medical Code(s): B33.22 - Viral myocarditis (3) Cardiomyopathy Status: Acute Qualifiers: Cardiomyopathy type: viral Qualified Code(s): B33.24 - Viral cardiomyopathy Category: Medical Code(s): I42.9 - Cardiomyopathy, unspecified - Assessment and plan all Dx Assessment and Plan for all problems:: rounded with dr bee all orders per dr bee waiting on life vest approval cardology to follow
--- NOTE | 2021-06-24 11:08 | HMH.PNCARD ---
Subjective Date: 06/24/21 Time: 11:08 Principal diagnosis: CHF, cardiomyopathy Interval history: 20-year-old white male in bed initially sleeping in no acute distress. Denies any chest pain, pressure or tightness. Shortness of breath has improved. Patient is anxious to go home but LifeVest approval is still pending at this time. Exam Vital signs and Labs for Last 24 Hours: Temp Pulse Resp BP Pulse Ox 98.1 F 110 H 14 107/64 L 97 06/24/21 08:00 06/24/21 08:00 06/24/21 08:00 06/24/21 08:00 06/24/21 08:00 Laboratory Results - last 24 hr 06/21/21 13:30: Anti-DNase B (Strep) 257 H 06/24/21 06:53: WBC 9.1, RBC 5.17, Hgb 14.7, Hct 42.6, MCV 82.4, MCH 28.4, MCHC 34.4, RDW 14.2, Plt Count 438 H, MPV 8.6, Neut % (Auto) 64.0, Lymph % (Auto) 27.3, [place] % (Auto) 5.8, Eos % (Auto) 1.3, Baso % (Auto) 1.7, Neut # (Auto) 5.8, Lymph # (Auto) 2.5, [place] # (Auto) 0.5, Eos # (Auto) 0.1, Baso # (Auto) 0.2 06/24/21 06:53: Sodium 135 L, Potassium 3.7, Chloride 100, Carbon Dioxide 28, Anion Gap 10.7, BUN 13, Creatinine 0.80, Estimated Creat Clear 231, Estimated GFR 122, Est GFR ( Amer) 148, Glucose 112 H, Calcium 8.8 I & O for Last 24 hours: Intake & Output 06/21/21 06/22/21 06/23/21 06/24/21 11:59 11:59 11:59 11:59 Intake Total 120 / 120 480 / 480 Output Total 400 / 400 2950 / 2950 1350 / 1350 Balance -280 / -280 -2470 / -2470 -1350 / -1350 Weight 249 lb 5 oz 250 lb 9.6 oz 248 lb 4.8 oz 246 lb 14.4 oz Microbiology Reports for the Last 24 Hours: Microbiology 06/21/21 15:50 Throat Throat Culture - Preliminary - Constitutional no acute distress - *Routine Respiratory Exam Present: CTA bilaterally - *Routine Cardiovascular Exam Present: RRR - *Routine Neurological Exam Present: alert, oriented X3 Progress Note: A&P (1) CHF (congestive heart failure) Status: Acute (2) Viral myocarditis Status: Acute (3) Cardiomyopathy Status: Acute Assessment and Plan for All Diagnoses:: 1. Viral myocarditis with severe cardiomyopathy, continue Entresto and carvedilol therapy. Home when LifeVest approved and fitted. 2. Systolic congestive heart failure, continue lasix 40 mg daily and spironolactone 50 mg daily. 3. Anticoagulation with Xarelto 10 mg daily due to severe cardiomyopathy 4. Recent strep infection, patient is on Augmentin.
--- NOTE | 2021-06-24 12:31 | DIET.NUTRFU ---
Rd consulted today during rounds to review diet again, more restrictive closer to 1500mg of sodium. Printed and reviewed more handouts on checking labels, condiments, cooking methods and different phone apps that help count the sodium. OR recommended writing foods consumed down and adding up sodium throughout day to determine what to eat next. Plan is to discharge when life vest is here and fitted. Family/friends present during education.
--- NOTE | 2021-06-24 15:30 | PC.NURSE ---
Educated pt on IV change per 3 day policy. Pt refused new IV.
--- NOTE | 2021-06-24 18:29 | PC.NURSE ---
Pt has done well this shift. VSS. Sinus tachy on tele. No other acute changes.
[2021-06-25] VITALS (8 sets, daily range): BP systolic 85–133; BP diastolic 49–60; PULSE 54–111; RESP 14–18; TEMP 36.4–36.8; O2SAT 95–97; BMI 31.9
--- NOTE | 2021-06-25 03:29 | PC.NURSE ---
Patient rested throughout shift. No SOB or chest pain report thus far. Patient awaiting Life vest approval. Patient on cardiac diet found eating [employer] brought by family. Education provided to patient about appropriate diet. VSS. No complaints at this time.
[2021-06-25 06:55] LABS: Basophils # 0.1 K/mm3 (0-0.2); Basophils % 1.6 % (0.1-2.0); Eosinophils # 0.1 K/mm3 (0.0-0.4); Hematocrit 41.4 % (42.0-52.0); Lymphocytes # 2.4 K/mm3 (0.7-4.5); Lymphocytes % 30.4 % (10-50); Mean Corpuscular HGB Conc 33.8 g/dL (31.8-35.4); Mean Corpuscular Hemoglobin 28.1 pg (27.0-31.2); Mean Corpuscular Volume 83.2 fl (80-94); Mean Platelet Volume 8.7 fl (7.4-10.4); Monocytes # 0.4 K/mm3 (0.1-1.0); Monocytes % 5.4 % (1.7-9.3); Neutrophils # 4.8 K/mm3 (1.8-7.8); Neutrophils % 61.6 % (37.0-80.0); Platelet Count 396 K/mm3 (142-424); Red Blood Count 4.97 M/mm3 (4.60-6.20); Red Cell Distribution Width 14.3 % (11.5-17.5); White Blood Count 7.7 K/mm3 (4.8-10.8)
[2021-06-25 07:06] LABS: Anion Gap 10.5 mEq/L (5-15); Blood Urea Nitrogen 12 mg/dl (9-20); Calcium 8.7 mg/dl (8.4-10.2); Carbon Dioxide 25 mmol/L (22.0-30.0); Chloride 102 mmol/L (98-107); Creatinine Clearance Estimated 233 mL/min (50-200); Estimated Glomerular Filt Rate 122 ml/min (>60); GFR (African American) 148 ML/MIN (>60); Glucose 116 mg/dl (74-100); Potassium 3.5 mmoL/L (3.5-5.1); Sodium 134 mmol/L (136-145)
--- NOTE | 2021-06-25 09:35 | HMH.ACPN2 ---
Internal Medicine - PN: Subj *Date: 06/25/21 *Time: 08:30 Interval history: pt states no /o Exam Vital signs and Labs for Last 24 Hours: Temp Pulse Resp BP Pulse Ox 97.9 F 107 H 17 91/51 L 95 06/25/21 07:58 06/25/21 07:58 06/25/21 07:58 06/25/21 07:58 06/25/21 07:58 Laboratory Results - last 24 hr 06/25/21 06:47: WBC 7.7, RBC 4.97, Hgb 14.0 L, Hct 41.4 L, MCV 83.2, MCH 28.1, MCHC 33.8, RDW 14.3, Plt Count 396, MPV 8.7, Neut % (Auto) 61.6, Lymph % (Auto) 30.4, [place] % (Auto) 5.4, Eos % (Auto) 1.0, Baso % (Auto) 1.6, Neut # (Auto) 4.8, Lymph # (Auto) 2.4, [place] # (Auto) 0.4, Eos # (Auto) 0.1, Baso # (Auto) 0.1 06/25/21 06:47: Sodium 134 L, Potassium 3.5, Chloride 102, Carbon Dioxide 25, Anion Gap 10.5, BUN 12, Creatinine 0.80, Estimated Creat Clear 233, Estimated GFR 122, Est GFR ( Amer) 148, Glucose 116 H, Calcium 8.7 I & O for Last 24 hours: Intake & Output 06/22/21 06/23/21 06/24/21 06/25/21 11:59 11:59 11:59 11:59 Intake Total 120 / 120 480 / 480 660 / 660 Output Total 400 / 400 2950 / 2950 1350 / 1350 780 / 780 Balance -280 / -280 -2470 / -2470 -1350 / -1350 -120 / -120 Weight 250 lb 9.6 oz 248 lb 4.8 oz 246 lb 14.4 oz 249 lb Microbiology Reports for the Last 24 Hours: Microbiology 06/21/21 15:50 Throat Throat Culture - Final Normal Upper Respiratory Savi - Constitutional no acute distress - *Routine HEENT Exam Head: Present: normocephalic Eye: Present: PERRL ENT: Present: mucous membranes moist - *Routine Neck Exam Present: supple. Absent: lymphadenopathy - *Routine Respiratory Exam Present: CTA bilaterally - *Routine Cardiovascular Exam Present: RRR - *Routine Abdominal Exam Present: soft, normoactive bowel sounds. Absent: tenderness - *Routine Extremities Exam Absent: cyanosis, clubbing, edema - *Routine Skin Exam Present: warm. Absent: rash - *Routine Neurological Exam Present: alert, oriented X3 Assessment and Plan (1) CHF (congestive heart failure) Status: Acute Category: Medical Code(s): I50.9 - Heart failure, unspecified (2) Viral myocarditis Status: Acute Category: Medical Code(s): B33.22 - Viral myocarditis (3) Cardiomyopathy Status: Acute Qualifiers: Cardiomyopathy type: viral Qualified Code(s): B33.24 - Viral cardiomyopathy Category: Medical Code(s): I42.9 - Cardiomyopathy, unspecified - Assessment and plan all Dx Assessment and Plan for all problems:: rounded with dr pond all orders per dr xiao waiting on life vest
--- NOTE | 2021-06-25 10:12 | HMH.DCSUM ---
General - General Admission date:: 06/21/21 Discharge date: 06/25/21 HPI HPI: 20-year-old white male with known history of recent streptococcal infection presented to the emergency department last evening for shortness of breath. He was found to have evidence of congestive heart failure and was given IV Lasix with improvement in his symptoms to the point the patient was discharged home for follow-up today in our office. Echocardiogram today showed severe cardiomyopathy with ejection fraction of 17%. He was subsequently seen in our office and admitted for further evaluation and treatment. above per law firm consultant Patient has been on a regimen of Augmentin 875 twice daily. No muffled voice, no significant cervical lymphadenopathy, no muffled voice. Patient had COVID last summer. Uneventful recovery. His mother relays that he was a term infant, no pediatric issues, no history of murmur or arrhythmia, no major illnesses. Patient denies alcohol or tobacco. An echo was done showing a significant cardiomyopathy with an EF of 17%. Hospital Course Hospital Course: Abnormal Lab Results 06/25/21 06:47: Hgb 14.0 L, Hct 41.4 L 06/25/21 06:47: Sodium 134 L, Glucose 116 H Microbiology 06/21/21 15:50 Throat Throat Culture - Final Normal Upper Respiratory Savi ECHO:Conclusion 1. Biatrial enlargement, dilated left ventricle, severely reduced left ventricular systolic function, estimated ejection fraction 20%, left ventricle is globally hypokinetic. Doppler evidence of raise left ventricular end-diastolic pressure and low cardiac output state seen. 2. Moderately enlarged right ventricle with moderate reduction right ventricular systolic function. 3. Mild mitral and tricuspid regurgitation. 4. Small pericardial effusion noted. 5. Inferior vena cava is mildly dilated without significant inspiratory collapse. Discharge Plan (1) CHF (congestive heart failure)-EF 20%,Moderately enlarged right ventricle with moderate reduction right ventricular systolic function.Systolic congestive heart failure, continue lasix 40 mg daily and spironolactone 50 mg daily. (2) Viral myocarditis-continue Entresto and carvedilol therapy. Home with LifeVest. (3) Cardiomyopathy-continue Entresto and carvedilol therapy. Home with LifeVest. cardiology consult:Assessment and Plan for All Diagnoses:: 1. Viral myocarditis with severe cardiomyopathy, continue Entresto and carvedilol therapy. Home when LifeVest approved and fitted. 2. Systolic congestive heart failure, continue lasix 40 mg daily and spironolactone 50 mg daily. 3. Anticoagulation with Xarelto 10 mg daily due to severe cardiomyopathy 4. Recent strep infection, patient is on Augmentin. Objective Vital signs: Temp Pulse Resp BP Pulse Ox 97.9 F 107 H 17 91/51 L 95 06/25/21 07:58 06/25/21 07:58 06/25/21 07:58 06/25/21 07:58 06/25/21 07:58 no acute distress - *Routine HEENT Exam Head: Present: normocephalic Eye: Present: PERRL ENT: Present: mucous membranes moist - *Routine Neck Exam Present: supple - *Routine Respiratory Exam Present: CTA bilaterally - *Routine Cardiovascular Exam Present: RRR - *Routine Abdominal Exam Present: soft, normoactive bowel sounds. Absent: tenderness - *Routine Extremities Exam Absent: cyanosis, clubbing, edema - *Routine Skin Exam Present: warm. Absent: rash - Detailed Eye Exam Eyelids: Bilateral normal inspection Results Labs on day of discharge: Labs from last 24 hours 06/25/21 06/25/21 06:47 06:47 WBC 7.7 RBC 4.97 Hgb 14.0 L Hct 41.4 L MCV 83.2 MCH 28.1 MCHC 33.8 RDW 14.3 Plt Count 396 MPV 8.7 Neut % (Auto) 61.6 Lymph % (Auto) 30.4 [place] % (Auto) 5.4 Eos % (Auto) 1.0 Baso % (Auto) 1.6 Neut # (Auto) 4.8 Lymph # (Auto) 2.4 [place] # (Auto) 0.4 Eos # (Auto) 0.1 Baso # (Auto) 0.
--- NOTE | 2021-06-25 12:11 | P.PN_ITS ---
Subjective Date: 06/25/21 Time: 12:11 Principal diagnosis: CHF, cardiomyopathy Interval history: 20-year-old white male in bed in no acute distress. No chest pain or shortness of breath. He is feeling much better. LifeVest was finally approved today and will be fitted this afternoon. Patient may be discharged home with follow-up in our office in 1 week. Exam Vital signs and Labs for Last 24 Hours: Temp Pulse Resp BP Pulse Ox 97.9 F 104 H 18 92/60 L 97 06/25/21 11:06/25/21 11:06/25/21 11:06/25/21 11:06/25/21 11:05 Laboratory Results - last 24 hr 06/25/21 06:47: WBC 7.7, RBC 4.97, Hgb 14.0 L, Hct 41.4 L, MCV 83.2, MCH 28.1, MCHC 33.8, RDW 14.3, Plt Count 396, MPV 8.7, Neut % (Auto) 61.6, Lymph % (Auto) 30.4, [place] % (Auto) 5.4, Eos % (Auto) 1.0, Baso % (Auto) 1.6, Neut # (Auto) 4.8, Lymph # (Auto) 2.4, [place] # (Auto) 0.4, Eos # (Auto) 0.1, Baso # (Auto) 0.1 06/25/21 06:47: Sodium 134 L, Potassium 3.5, Chloride 102, Carbon Dioxide 25, Anion Gap 10.5, BUN 12, Creatinine 0.80, Estimated Creat Clear 233, Estimated GFR 122, Est GFR ( Amer) 148, Glucose 116 H, Calcium 8.7 I & O for Last 24 hours: Intake & Output 06/23/21 06/24/21 06/25/21 06/26/21 11:59 11:59 11:59 11:59 Intake Total 480 / 480 660 / 660 Output Total 2950 / 2950 1350 / 1350 780 / 780 Balance -2470 / -2470 -1350 / -1350 -120 / -120 Weight 248 lb 4.8 oz 246 lb 14.4 oz 249 lb Microbiology Reports for the Last 24 Hours: Microbiology 06/21/21 15:50 Throat Throat Culture - Final Normal Upper Respiratory Savi - Constitutional no acute distress - *Routine Respiratory Exam Present: CTA bilaterally - *Routine Cardiovascular Exam Present: RRR - *Routine Extremities Exam Absent: cyanosis, clubbing, edema - *Routine Neurological Exam Present: alert, oriented X3 Progress Note: A&P (1) CHF (congestive heart failure) Status: Acute (2) Viral myocarditis Status: Acute (3) Cardiomyopathy Status: Acute Assessment and Plan for All Diagnoses:: Discharge home later this afternoon after LifeVest fitted. Medications Coreg 3.125 mg twice daily Entresto twice daily Lasix 40 mg daily Spironolactone 50 mg daily Xarelto 10 mg daily He will finish up the amoxicillin he has at home Follow-up in our office in 1 week.
== END 2021-06-25 16:29 | disposition home or self-care (01) | DRG 291 ==
PROVIDERS: Nurse Practitioner Family; Physician Assistant; Admitting Provider Emergency Medicine; Visit Provider Emergency Medicine
DX: I50.21 Acute systolic (congestive) heart failure (principal); I40.0 Infective myocarditis; I42.9 Cardiomyopathy, unspecified; Z86.16 Personal history of COVID-19
CPT/HCPCS: 36415; 71045; 71046; 71275; 80048; 80076; 82150; 82550; 83605; 83690; 83735; 83880; 84145; 84484; 85025; 85651; 86060; 86140; 86215; 87040; 87070; 87275; 87276; 93005; 93306; 96375; C9803; Q9967; U0003; U0005

== ENCOUNTER 2021-07-15 02:41 | Emergency (ER) | payer OTHER, SELFPAY ==
[2021-07-15 02:42] VITALS: BP 122/101; PULSE 115; RESP 18; TEMP 36.8; O2SAT 95; BMI 33.5
[2021-07-15 03:01] VITALS: BP 100/59; PULSE 62; O2SAT 99
--- NOTE | 2021-07-15 03:01 | ECG_ITS ---
APPROVED REPORT Exam: Resting ECG HR:116 bpm ECG Measurements Heart Rate 116 AXES ID 178 P 57 QRSd 98 QRS -21 QT 336 T 149 QTc 405 Conclusion SINUS TACHYCARDIA WITH OCCASIONAL VENTRICULAR PREMATURE COMPLEXES POSSIBLE LEFT ATRIAL ENLARGEMENT [-0.1mV P-WAVE IN V1/V2] BORDERLINE LEFT AXIS DEVIATION [QRS AXIS < -20] LOW QRS VOLTAGE IN PRECORDIAL LEADS [QRS DEFLECTION < 1.0 mV IN CHEST LEADS] PATTERN CONSISTENT WITH PULMONARY DISEASE MODERATE T-WAVE ABNORMALITY, CONSIDER LATERAL ISCHEMIA [-0.1+ mV T-WAVE IN I/aVL/V5/V6] ABNORMAL ECG UNCONFIRMED REPORT Electronically signed by : Al Andrade MD 07/16/2021 10:31:41
--- NOTE | 2021-07-15 03:03 | XR_ITS ---
PROCEDURE INFORMATION: Exam: XR Chest Exam date and time: 07/15/2021 3:02 AM Age: 20 years old Clinical indication: Sternal or substernal pain; Patient HX: PT wearing external life vest. Life vest x1 month for chf; Additional info: Chest pain TECHNIQUE: Imaging protocol: XR of the chest. Views: 2 views. COMPARISON: CR XR CHEST PORTABLE 06/22/2021 5:28 AM FINDINGS: Lungs: Central vascular congestion, with probable mild edema. Degree of edema has lessened since prior imaging. No consolidation. Pleural spaces: No pleural effusion. No pneumothorax. Heart/Mediastinum: Cardiomegaly. Bones/joints: Mild chronic-appearing anterior wedging of midthoracic vertebral bodies, similar to prior chest CT of 06/21/2021. Other findings: External life vest present. IMPRESSION: Cardiomegaly and central vascular congestion, with probable mild interstitial edema.
[2021-07-15 03:12] LABS: Microscopic, Urine URINE MICROSCOPIC (MICROSCOPIC)
[2021-07-15 03:20] LABS: Basophils # 0.2 K/mm3 (0-0.2); Basophils % 1.4 % (0.1-2.0); Eosinophils # 0.1 K/mm3 (0.0-0.4); Eosinophils % 0.6 % (0.1-12.0); Hematocrit 40.1 % (42.0-52.0); Hemoglobin 13.8 g/dL (14.1-18.0); Lymphocytes # 1.4 K/mm3 (0.7-4.5); Mean Corpuscular HGB Conc 34.4 g/dL (31.8-35.4); Mean Corpuscular Hemoglobin 28.6 pg (27.0-31.2); Mean Corpuscular Volume 83.1 fl (80-94); Mean Platelet Volume 9.3 fl (7.4-10.4); Monocytes # 0.3 K/mm3 (0.1-1.0); Monocytes % 2.6 % (1.7-9.3); Neutrophils # 8.8 K/mm3 (1.8-7.8); Neutrophils % 82.3 % (37.0-80.0); Platelet Count 367 K/mm3 (142-424); Red Blood Count 4.82 M/mm3 (4.60-6.20); White Blood Count 10.7 K/mm3 (4.8-10.8)
[2021-07-15 03:26] LABS: Appearance,Urine CLEAR (Clear); Blood, Urine Negative (Negative); Color,Urine YELLOW (Yellow); Glucose,Urine (UA) Negative (Negative); Ketones,Urine Negative (Negative); Leukocyte Esterase,Urine Negative (Negative); Nitrate,Urine Negative (Negative); PH,Urine 5.5 (5.0-8.5); Protein,Urine 2+ (Negative); Specific Gravity, Urine >= 1.030 (1.005-1.030); Urobilinogen,Urine 0.2 EU/dl (0.2)
[2021-07-15 03:27] LABS: Chloride 101 mmol/L (98-107); Sodium 134 mmol/L (136-145)
[2021-07-15 03:28] LABS: Potassium 3.6 mmoL/L (3.5-5.1)
[2021-07-15 03:30] LABS: Alanine Aminotransferase 122 U/L (12-78); Alkaline Phosphatase 62 U/L (38-126); Amylase 67 U/L (30-110); Aspartate Amino Transferase 67 U/L (17-59); Blood Urea Nitrogen 17 mg/dl (9-20); Creatinine Clearance Estimated 212 mL/min (50-200); Estimated Glomerular Filt Rate 107 ml/min (>60); GFR (African American) 129 ML/MIN (>60)
[2021-07-15 03:31] LABS: Albumin Level 4.3 g/dl (3.5-5.0); Albumin/Globulin Ratio 1.5 (1.1-1.8); Calcium 9.3 mg/dl (8.4-10.2); Globulin 2.9 g/dL (1.3-3.2); Glucose 117 mg/dl (74-100); Lipase 97 U/L (23-300); Total Protein,Serum 7.2 g/dl (6.3-8.2)
[2021-07-15 03:33] LABS: Bilirubin,Urine Negative (Negative)
[2021-07-15 03:36] LABS: C-Reactive Protein 1.7 mg/L (0-4)
[2021-07-15 03:42] LABS: NT Pro Brain Natriuretic Pep. 8180 pg/mL (0-125)
[2021-07-15 03:49] LABS: Troponin I < 0.01 ng/ml (0.00-0.034)
--- NOTE | 2021-07-15 03:55 | PC.NURSE ---
pt resting in bed, warm blankets given no new needs
[2021-07-15 04:08] LABS: Erythrocyte Sedimentation Rate 23 mm/hr (0-15)
--- NOTE | 2021-07-15 04:36 | HMH.EDNVD ---
ED Disposition Clinical Impression: CHF (congestive heart failure) Qualifiers: Heart failure type: unspecified Heart failure chronicity: acute on chronic Qualified Code(s): I50.9 - Heart failure, unspecified Disposition: Home, Self-Care Condition on Discharge: Good Instructions: DI for Heart Failure Additional Instructions: call dr mattson this am Referrals: Morro King MD [Primary Care Provider] - Sid Mattson MD [Staff Physician] - - Critical Care Critical Care Time: No Attestation: On 07/15/21, the high probability of a clinically significant, sudden or life threatening deterioration of the following system(s) required my full and direct attention, intervention and personal management. The time I documented below is in addition to time spent performing reported procedures but includes the following listed in this critical care notation. Medical Decision Making - Medical Records Medical records reviewed: Yes: I reviewed the patient's medical records. - Jonathan Inquiry Pt receiving controlled substance: No Vital Signs: 07/15/21 02:42 07/15/21 03:01 07/15/21 04:46 Temperature 98.3 F Temperature Source Oral Pulse Rate 62 56 L Pulse Rate [Left Radial] 115 H Respiratory Rate 18 16 Blood Pressure 100/59 L 98/65 L Blood Pressure [Right Arm] 122/101 H Blood Pressure Mean 72 Blood Pressure Mean [Right Arm] 108 Blood Pressure Source Automatic Cuff Blood Pressure Position Sitting 02 Sat by Pulse Oximetry 95 99 99 Oxygen Delivery Method Room Air Room Air - Lab Data Lab results reviewed: Yes: I reviewed the patient's lab results. Lab Results 07/15/21 02:47: Urine Color Yellow, Urine Appearance Clear, Urine pH 5.5, Ur Specific [place] >= 1.030, Urine Protein 2+, Urine Glucose (UA) Negative, Urine Ketones Negative, Urine Blood Negative, Urine Nitrate Negative, Urine Bilirubin Negative, Urine Urobilinogen 0.2, Ur Leukocyte Esterase Negative 07/15/21 03:10: WBC 10.7, RBC 4.82, Hgb 13.8 L, Hct 40.1 L, MCV 83.1, MCH 28.6, MCHC 34.4, RDW 14.0, Plt Count 367, MPV 9.3, Neut % (Auto) 82.3 H, Lymph % (Auto) 13.0, [place] % (Auto) 2.6, Eos % (Auto) 0.6, Baso % (Auto) 1.4, Neut # (Auto) 8.8 H, Lymph # (Auto) 1.4, [place] # (Auto) 0.3, Eos # (Auto) 0.1, Baso # (Auto) 0.2, ESR 23 H 07/15/21 03:10: Sodium 134 L, Potassium 3.6, Chloride 101, Carbon Dioxide 24, BUN 17, Creatinine 0.90, Estimated Creat Clear 212, Estimated GFR 107, Est GFR ( Amer) 129, Glucose 117 H, Calcium 9.3, Total Bilirubin 1.0, AST 67 H, ALT 122 H, Alkaline Phosphatase 62, Troponin I < 0.01, C-Reactive Protein 1.7, Total Protein 7.2, Albumin 4.3, Globulin 2.9, Albumin/Globulin Ratio 1.5, Amylase 67, Lipase 97, Procalcitonin 0.047 07/15/21 03:10: NT-Pro-B Natriuret Pep 8180 H Result diagrams: 07/15/21 03:10 07/15/21 03:10 Orders (Tests/Meds): ED MEDICATIONS Generic Name Dose Route Start Last Admin Trade Name Freq PRN Reason Stop Dose Admin Sodium Chloride 8 ml 07/15/21 03:06 Sodium Chloride 0.9% 10ml Vial IV 08/14/21 03:05 NEEDED PRN dilute pepcid Sodium Chloride 10 ml 07/15/21 03:12 Sodium Chloride 0.9% 10ml Flush Syringe IV 08/14/21 03:11 NEEDED PRN Maintain IV Site Discontinued Medications Generic Name Dose Route Start Last Admin Trade Name Freq PRN Reason Stop Dose Admin Famotidine 20 mg 07/15/21 03:06 07/15/21 03:21 Famotidine 20mg/2ml Vial IV 07/15/21 03:07 20 mg ONCE ONE Administration Metoclopramide HCl 10 mg 07/15/21 03:06 07/15/21 03:21 Metoclopramide Hcl 10mg/2ml Vial IVP 07/15/21 03:07 10 mg ONCE ONE Administration Ondansetron HCl 4 mg 07/15/21 03:05 07/15/21 03:21 Ondansetron 4mg/2ml Vial IV 07/15/21 03:06 4 mg ONCE ONE Administration ORDERS Category Date Time Status Amylase Stat Lab 07/15/21 03:10 Results C-Reactive Protein Stat Lab 07/15/21 03:10 Results Comprehensive Metabolic Panel Stat Lab 07/15/21 03:10 R
[2021-07-15 04:46] VITALS: BP 98/65; PULSE 56; RESP 16; O2SAT 99
[2021-07-15 04:50] LABS: Procalcitonin 0.047 ng/mL (0.0-2.0)
--- NOTE | 2021-07-15 04:57 | PC.NURSE ---
speaking with Dr. Uriostegui
[2021-07-15 05:00] VITALS: BP 100/62; PULSE 68; RESP 16; TEMP 37.2; O2SAT 98
--- NOTE | 2021-07-15 05:00 | PC.NURSE ---
Dr. Uriostegui requested patient come to his office later this morning for him to see. Pt agreeable to plan and verbalized understanding.
[2021-07-15 05:32] LABS: Anion Gap 12.6 mEq/L (5-15); Carbon Dioxide 24 mmol/L (22.0-30.0)
== END 2021-07-15 05:02 | disposition home or self-care (01) ==
PROVIDERS: Emergency Provider Emergency Medicine; PCP Emergency Medicine
DX: I50.9 Heart failure, unspecified (principal); R94.31 Abnormal electrocardiogram [ECG] [EKG]; R00.1 Bradycardia, unspecified; R11.2 Nausea with vomiting, unspecified; R23.2 Flushing; Z79.01 Long term (current) use of anticoagulants; Z79.899 Other long term (current) drug therapy; Z82.49 Family history of ischemic heart disease and other diseases of the circulatory system; Z80.9 Family history of malignant neoplasm, unspecified; Z83.438 Family history of other disorder of lipoprotein metabolism and other lipidemia; Z83.3 Family history of diabetes mellitus
CPT/HCPCS: 71046; 80053; 81001; 82150; 83690; 83880; 84145; 84484; 85025; 85651; 86140; 93005; 96374; 96375; 99285; J2405

== ENCOUNTER 2021-07-16 01:09 | Emergency (ER) | payer OTHER, SELFPAY ==
[2021-07-16 01:10] VITALS: BP 102/68; PULSE 98; RESP 18; TEMP 36.6; O2SAT 99; BMI 33.5
--- NOTE | 2021-07-16 01:29 | XR_ITS ---
PROCEDURE INFORMATION: Exam: XR Chest Exam date and time: 07/16/2021 1:32 AM Age: 20 years old Clinical indication: Sternal or substernal pain; Patient HX: Wearing external life vest. HX chf; Additional info: Chest pain, seen in ED last night. States similar symptoms but says he is now coughing up some blood TECHNIQUE: Imaging protocol: XR of the chest. Views: 2 views. COMPARISON: CR XR CHEST 2V 07/15/2021 3:02 AM FINDINGS: Tubes, catheters and devices: External life vest device again noted. Lungs: No acute airspace consolidation. No appreciable pulmonary edema. Pleural spaces: No pleural effusion. No pneumothorax. Heart/Mediastinum: Cardiomediastinal silhouette is unchanged. Bones/joints: No acute osseous abnormality. Soft tissues: Unremarkable. IMPRESSION: No acute findings.
[2021-07-16 01:30] VITALS: BP 102/68; PULSE 96; RESP 18; TEMP 36.8; O2SAT 96
[2021-07-16 01:45] LABS: Basophils # 0.2 K/mm3 (0-0.2); Basophils % 1.7 % (0.1-2.0); Eosinophils % 0.2 % (0.1-12.0); Hematocrit 41.7 % (42.0-52.0); Hemoglobin 14.2 g/dL (14.1-18.0); Lymphocytes % 17.9 % (10-50); Mean Corpuscular Hemoglobin 28.7 pg (27.0-31.2); Mean Corpuscular Volume 84.3 fl (80-94); Mean Platelet Volume 9.7 fl (7.4-10.4); Monocytes # 0.4 K/mm3 (0.1-1.0); Monocytes % 3.6 % (1.7-9.3); Neutrophils # 8.7 K/mm3 (1.8-7.8); Neutrophils % 76.6 % (37.0-80.0); Platelet Count 380 K/mm3 (142-424); Red Blood Count 4.94 M/mm3 (4.60-6.20); Red Cell Distribution Width 14.2 % (11.5-17.5); White Blood Count 11.4 K/mm3 (4.8-10.8)
[2021-07-16 02:00] VITALS: BP 95/72; PULSE 105; RESP 18; TEMP 36.8; O2SAT 97
[2021-07-16 02:02] LABS: Chloride 99 mmol/L (98-107); Sodium 134 mmol/L (136-145)
[2021-07-16 02:03] LABS: Potassium 3.9 mmoL/L (3.5-5.1)
[2021-07-16 02:05] LABS: Alanine Aminotransferase 157 U/L (12-78); Alkaline Phosphatase 58 U/L (38-126); Aspartate Amino Transferase 104 U/L (17-59); Bilirubin,Total 1.5 mg/dl (0.2-1.3); Blood Urea Nitrogen 21 mg/dl (9-20); Creatinine Clearance Estimated 127 mL/min (50-200); Estimated Glomerular Filt Rate 59 ml/min (>60); GFR (African American) 71 ML/MIN (>60)
[2021-07-16 02:06] LABS: Alanine Aminotransferase 157 U/L (12-78); Albumin Level 4.4 g/dl (3.5-5.0); Albumin/Globulin Ratio 1.6 (1.1-1.8); Alkaline Phosphatase 57 U/L (38-126); Amylase 61 U/L (30-110); Anion Gap 12.9 mEq/L (5-15); Aspartate Amino Transferase 103 U/L (17-59); Bilirubin,Direct 0.2 mg/dl (0.0-0.4); Bilirubin,Indirect 1.2 mg/dL (0.0-0.9); Bilirubin,Total 1.4 mg/dl (0.2-1.3); Bilirubin,Unconjugated 1.1 mg/dL (0.0-1.1); Calcium 9.2 mg/dl (8.4-10.2); Carbon Dioxide 26 mmol/L (22.0-30.0); Globulin 2.8 g/dL (1.3-3.2); Glucose 144 mg/dl (74-100); Lipase 87 U/L (23-300); Total Protein,Serum 7.2 g/dl (6.3-8.2)
[2021-07-16 02:07] LABS: Albumin Level 4.3 g/dl (3.5-5.0); Total Protein,Serum 6.9 g/dl (6.3-8.2)
[2021-07-16 02:12] LABS: C-Reactive Protein 1.5 mg/L (0-4)
[2021-07-16 02:17] LABS: NT Pro Brain Natriuretic Pep. 11800 pg/mL (0-125)
[2021-07-16 02:24] LABS: Procalcitonin 0.071 ng/mL (0.0-2.0)
[2021-07-16 02:30] VITALS: BP 85/60; PULSE 122; RESP 18; TEMP 36.8; O2SAT 96
[2021-07-16 02:43] LABS: Erythrocyte Sedimentation Rate 5 mm/hr (0-15)
--- NOTE | 2021-07-16 02:43 | HMH.EDURI ---
ED Disposition Clinical Impression: Hemoptysis, KEVIN (acute kidney injury) Viral myocarditis Qualifiers: Chronicity: subacute Qualified Code(s): I40.0 - Infective myocarditis Disposition: Home, Self-Care Condition on Discharge: Good Instructions: DI for Hemoptysis Additional Instructions: resume meds and see pcp or card for follow up Referrals: Morro King MD [Primary Care Provider] - - Critical Care Critical Care Time: No Attestation: On 07/16/21, the high probability of a clinically significant, sudden or life threatening deterioration of the following system(s) required my full and direct attention, intervention and personal management. The time I documented below is in addition to time spent performing reported procedures but includes the following listed in this critical care notation. Medical Decision Making - Medical Records Medical records reviewed: Yes: I reviewed the patient's medical records. - Jonathan Inquiry Pt receiving controlled substance: No Vital Signs: 07/16/21 01:10 Temperature 98 F Temperature Source Oral Pulse Rate [Left Radial] 98 H Respiratory Rate 18 Blood Pressure [Right Arm] 102/68 L Blood Pressure Mean [Right Arm] 79 Blood Pressure Source [Right Arm] Automatic Cuff Blood Pressure Position [Right Arm] Sitting 02 Sat by Pulse Oximetry 99 Oxygen Delivery Method Room Air - Lab Data Lab results reviewed: Yes: I reviewed the patient's lab results. Lab Results 07/16/21 01:19: WBC 11.4 H, RBC 4.94, Hgb 14.2, Hct 41.7 L, MCV 84.3, MCH 28.7, MCHC 34.0, RDW 14.2, Plt Count 380, MPV 9.7, Neut % (Auto) 76.6, Lymph % (Auto) 17.9, [place] % (Auto) 3.6, Eos % (Auto) 0.2, Baso % (Auto) 1.7, Neut # (Auto) 8.7 H, Lymph # (Auto) 2.0, [place] # (Auto) 0.4, Eos # (Auto) 0.0, Baso # (Auto) 0.2 07/16/21 01:19: Sodium 134 L, Potassium 3.9, Chloride 99, Carbon Dioxide 26, Anion Gap 12.9, BUN 21 H, Creatinine 1.50 H D, Estimated Creat Clear 127, Estimated GFR 59, Est GFR ( Amer) 71 D, Glucose 144 H D, Calcium 9.2, Total Bilirubin 1.5 H, AST 104 H D, ALT 157 H D, Alkaline Phosphatase 58, C-Reactive Protein 1.5, NT-Pro-B Natriuret Pep 39045 H, Total Protein 7.2, Albumin 4.4, Globulin 2.8, Albumin/Globulin Ratio 1.6 07/16/21 01:19: ESR 5 07/16/21 01:19: Procalcitonin 0.071 07/16/21 01:19: Total Bilirubin 1.4 H, Direct Bilirubin 0.2, Conjugated Bilirubin 0.0, Indirect Bilirubin 1.2 H, Unconjugated Bilirubin 1.1, AST 103 H, ALT 157 H, Alkaline Phosphatase 57, Total Protein 6.9, Albumin 4.3, Amylase 61 07/16/21 01:19: Lipase 87 Result diagrams: 07/16/21 01:19 07/16/21 01:19 Orders (Tests/Meds): ED MEDICATIONS Generic Name Dose Route Start Last Admin Trade Name Freq PRN Reason Stop Dose Admin Sodium Chloride 500 mls @ 999 mls/hr 07/16/21 02:45 07/16/21 02:34 Sod Chlor 0.9% 1000ml Bag IV 07/16/21 03:15 999 mls/hr .Q31M BALAJI Administration Sodium Chloride 8 ml 07/16/21 01:36 Sodium Chloride 0.9% 10ml Vial IV 08/15/21 01:35 NEEDED PRN dilute pepcid Discontinued Medications Generic Name Dose Route Start Last Admin Trade Name Freq PRN Reason Stop Dose Admin Famotidine 20 mg 07/16/21 01:36 07/16/21 01:38 Famotidine 20mg/2ml Vial IV 07/16/21 01:37 20 mg ONCE ONE Administration Ondansetron HCl 4 mg 07/16/21 01:35 07/16/21 01:38 Ondansetron 4mg/2ml Vial IV 07/16/21 01:36 4 mg ONCE ONE Administration - Radiology Data #1 Image(s): Chest Image Reviewed: Yes I have reviewed radiologist's interpretation Preliminary Findings: Normal/NAD Medical Decision Narrative: has episode of blood in sputum after cough on xarelto with stable exam and labs esxcept sl kevin URI/Sore Throat HPI - General Chief Complaint: Upper Respiratory Infection Stated Complaint: coughing up blood; vomiting; abd pain Time Seen by Provider: 07/16/21 02:43 Mode of Arrival: Ambulatory Source of Information: Patient, Medical Record Limitations: No L
[2021-07-16 03:00] VITALS: BP 99/67; PULSE 103; RESP 18; TEMP 36.7; O2SAT 96
[2021-07-16 03:05] VITALS: BP 99/47; PULSE 104; RESP 18; TEMP 36.8; O2SAT 97
--- NOTE | 2021-07-16 03:05 | PC.NURSE ---
MD ordered 500cc ns fluid bolus. MD aware of patients bnp.
== END 2021-07-16 03:14 | disposition home or self-care (01) ==
PROVIDERS: Emergency Provider Emergency Medicine; PCP Emergency Medicine
DX: R04.2 Hemoptysis (principal); N17.9 Acute kidney failure, unspecified; I40.0 Infective myocarditis; Z79.01 Long term (current) use of anticoagulants; Z79.899 Other long term (current) drug therapy; I50.9 Heart failure, unspecified; Z80.9 Family history of malignant neoplasm, unspecified; Z83.3 Family history of diabetes mellitus; Z82.3 Family history of stroke; Z82.49 Family history of ischemic heart disease and other diseases of the circulatory system; Z83.438 Family history of other disorder of lipoprotein metabolism and other lipidemia
CPT/HCPCS: 71046; 80053; 80076; 82150; 83690; 83880; 84145; 85025; 85651; 86140; 96365; 96375; 99284; J2405

== ENCOUNTER 2021-07-27 23:29 | Emergency (ER) | payer OTHER, SELFPAY ==
[2021-07-27 23:30] VITALS: BP 107/51; PULSE 110; RESP 16; TEMP 36.9; O2SAT 98; BMI 14.8
--- NOTE | 2021-07-27 23:37 | ECG_ITS ---
APPROVED REPORT Exam: Resting ECG HR:117 bpm ECG Measurements Heart Rate 117 AXES ME 178 P 78 QRSd 94 QRS 45 QT 431 T 80 QTc 501 Conclusion SINUS TACHYCARDIA LOW QRS VOLTAGE IN PRECORDIAL LEADS [QRS DEFLECTION < 1.0 mV IN CHEST LEADS] ABNORMAL RHYTHM ECG UNCONFIRMED REPORT Electronically signed by : Al Andrade MD 07/28/2021 16:53:56
[2021-07-27 23:47] VITALS: BMI 32.7
--- NOTE | 2021-07-28 | XR_ITS ---
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 HX of chf; Additional info: Abd pain TECHNIQUE: Imaging protocol: XR of the chest. Views: 2 views. COMPARISON: CR XR CHEST 2V 07/16/2021 1:32 AM FINDINGS: Lungs: Lungs are clear. Pleural spaces: No visible pleural effusion. Heart/Mediastinum: Mild to moderate cardiomegaly noted. Vasculature: A azygos arch is not distended. Bones/joints: Unremarkable. IMPRESSION: Unexplained but stable mild to moderate cardiomegaly. No pulmonary edema or pleural effusions seen currently.
--- NOTE | 2021-07-28 | CT_ITS ---
PROCEDURE INFORMATION: Exam: CT Abdomen And Pelvis Without Contrast Exam date and time: 07/28/2021 12:43 AM Age: 20 years old Clinical indication: Abdominal pain; Additional info: Abd pain TECHNIQUE: Imaging protocol: Computed tomography of the abdomen and pelvis without contrast. Radiation optimization: All CT scans at this facility use at least one of these dose optimization techniques: automated exposure control; mA and/or kV adjustment per patient size (includes targeted exams where dose is matched to clinical indication); or iterative reconstruction. COMPARISON: CT ANGIO CHEST PE PROTOCOL 06/21/2021 1:57 AM FINDINGS: Lungs: Geographic ground-glass attenuation noted at each lung base. Pleural spaces: No pleural fluid. Heart: Mild to moderate cardiomegaly. Liver: Normal. No mass. Gallbladder and bile ducts: Normal. No calcified stones. No ductal dilation. Pancreas: Normal. No ductal dilation. Spleen: Normal. No splenomegaly. Adrenal glands: Normal. No mass. Kidneys and ureters: Normal. No hydronephrosis. Stomach and bowel: Unremarkable. No obstruction. No mucosal thickening. Appendix: Normal appendix confirmed. Intraperitoneal space: Unremarkable. No free air. No significant fluid collection. Vasculature: Unremarkable. No abdominal aortic aneurysm. Lymph nodes: Unremarkable. No enlarged lymph nodes. Urinary bladder: Unremarkable as visualized. Reproductive: Unremarkable as visualized. Bones/joints: Unremarkable. No acute fracture. Soft tissues: There is of monitoring harness around the patient's lower chest. IMPRESSION: 1. Unexplained cardiomegaly. 2. Ground-glass attenuation at each lung base is nonspecific but could reflect atypical pneumonitis including COVID 19 pneumonia.
[2021-07-28 00:21] LABS: Microscopic, Urine URINE MICROSCOPIC (MICROSCOPIC)
[2021-07-28 00:42] LABS: Appearance,Urine CLEAR (Clear); Blood, Urine Negative (Negative); Color,Urine YELLOW (Yellow); Glucose,Urine (UA) Negative (Negative); Ketones,Urine Negative (Negative); Leukocyte Esterase,Urine Negative (Negative); Nitrate,Urine Negative (Negative); PH,Urine 5.5 (5.0-8.5); Protein,Urine 1+ (Negative); Specific Gravity, Urine >= 1.030 (1.005-1.030)
[2021-07-28 00:59] LABS: Bilirubin,Urine Negative (Negative)
--- NOTE | 2021-07-28 01:00 | PC.NURSE ---
Pt returned from Rad. Resting in bed
[2021-07-28 01:02] VITALS: BP 124/83; PULSE 98; RESP 16; O2SAT 98
--- NOTE | 2021-07-28 01:06 | HMH.EDNVD ---
ED Disposition Clinical Impression: Abdominal pain Qualifiers: Abdominal location: periumbilical Qualified Code(s): R10.33 - Periumbilical pain Viral myocarditis Qualifiers: Chronicity: subacute Qualified Code(s): I40.0 - Infective myocarditis Disposition: Home, Self-Care Condition on Discharge: Good Instructions: DI for Acute Abdominal Pain Additional Instructions: see pcp and card for follow up Referrals: Morro King MD [Primary Care Provider] - - Critical Care Critical Care Time: No Attestation: On 07/27/21, the high probability of a clinically significant, sudden or life threatening deterioration of the following system(s) required my full and direct attention, intervention and personal management. The time I documented below is in addition to time spent performing reported procedures but includes the following listed in this critical care notation. Medical Decision Making - Medical Records Medical records reviewed: Yes: I reviewed the patient's medical records. - Jonathan Inquiry Pt receiving controlled substance: No Vital Signs: 07/27/21 23:30 07/28/21 01:02 07/28/21 02:21 Temperature 98.5 F Temperature Source Oral Pulse Rate 98 H 100 H Pulse Rate [Right] 110 H Respiratory Rate 16 16 18 Blood Pressure 124/83 114/80 Blood Pressure [Right Arm] 107/51 L Blood Pressure Mean [Right Arm] 69 Blood Pressure Source Automatic Cuff Automatic Cuff Blood Pressure Source [Right Arm] Automatic Cuff Blood Pressure Position Sitting Sitting Blood Pressure Position [Right Arm] Sitting 02 Sat by Pulse Oximetry 98 98 98 Oxygen Delivery Method Room Air Room Air Room Air - Lab Data Lab results reviewed: Yes: I reviewed the patient's lab results. Lab Results 07/27/21 23:45: WBC 9.0, RBC 4.51 L, Hgb 12.9 L, Hct 38.0 L, MCV 84.3, MCH 28.5, MCHC 33.8, RDW 13.9, Plt Count 393, MPV 10.7 H, Neut % (Auto) 62.6, Lymph % (Auto) 31.1, [place] % (Auto) 4.1, Eos % (Auto) 0.3, Baso % (Auto) 1.9, Neut # (Auto) 5.7, Lymph # (Auto) 2.8, [place] # (Auto) 0.4, Eos # (Auto) 0.0, Baso # (Auto) 0.2 06/07/22 23:45: Sodium 135 L, Potassium 3.8, Chloride 103, Carbon Dioxide 20 L, Anion Gap 15.8 H, BUN 20, Creatinine 1.10, Estimated Creat Clear 169, Estimated GFR 85, Est GFR ( Amer) 102, Glucose 127 H, Calcium 9.2, Total Bilirubin 1.7 H, AST 59, ALT 86 H, Alkaline Phosphatase 54, Troponin I < 0.01, Total Protein 6.7, Albumin 3.9, Globulin 2.8, Albumin/Globulin Ratio 1.4, Amylase 57, Lipase 126 07/28/21 00:18: Urine Color Yellow, Urine Appearance Clear, Urine pH 5.5, Ur Specific [place] >= 1.030, Urine Protein 1+, Urine Glucose (UA) Negative, Urine Ketones Negative, Urine Blood Negative, Urine Nitrate Negative, Urine Bilirubin Negative, Urine Urobilinogen 1.0, Ur Leukocyte Esterase Negative, Urine RBC None, Urine WBC Occasional, Ur Squamous Epith Cells None, Urine Bacteria Trace 07/28/21 01:54: SARS-CoV-2 (PCR) Not detected, Influenza A Untype (PCR) Not detected, Influenza Type B (PCR) Not detected Result diagrams: 07/27/21 23:45 07/27/21 23:45 Orders (Tests/Meds): ED MEDICATIONS Generic Name Dose Route Start Last Admin Trade Name Freq PRN Reason Stop Dose Admin Sodium Chloride 10 ml 07/27/21 23:50 Sodium Chloride 0.9% 10ml Flush Syringe IV 08/26/21 23:49 NEEDED PRN Maintain IV Site ORDERS Category Date Time Status BNP [Brain Natriuretic Peptide] Stat Lab 07/28/21 02:39 Received Troponin I Q3H Lab 07/28/21 03:00 Ordered Troponin I Q3H Lab 07/28/21 06:00 Ordered - Radiology Data #1 Image(s): Chest Image Reviewed: Yes I have reviewed radiologist's interpretation Preliminary Findings: Normal/NAD - CT Data CT Scan: Abdomen, Pelvis Time Received: 02:[address] Reviewed: Yes: I have viewed the radiologist's interpretation Preliminary Findings: Normal/NAD - ECG Data Tracing #1 Normal Sinus Rhythm: Yes Ischemic changes: non-specific ST-T wave changes Medical [facility]
[2021-07-28 01:30] LABS: Bacteria,Urine Trace /lpf; WBC,Urine Occasional #/hpf (0-3)
--- NOTE | 2021-07-28 01:47 | PC.NURSE ---
Called lab to check on results. Advised it would be just a few more minutes
[2021-07-28 01:48] LABS: Alanine Aminotransferase 86 U/L (12-78); Albumin Level 3.9 g/dl (3.5-5.0); Albumin/Globulin Ratio 1.4 (1.1-1.8); Alkaline Phosphatase 54 U/L (38-126); Amylase 57 U/L (30-110); Anion Gap 15.8 mEq/L (5-15); Aspartate Amino Transferase 59 U/L (17-59); Basophils # 0.2 K/mm3 (0-0.2); Basophils % 1.9 % (0.1-2.0); Bilirubin,Total 1.7 mg/dl (0.2-1.3); Blood Urea Nitrogen 20 mg/dl (9-20); Calcium 9.2 mg/dl (8.4-10.2); Carbon Dioxide 20 mmol/L (22.0-30.0); Chloride 103 mmol/L (98-107); Creatinine Clearance Estimated 169 mL/min (50-200); Eosinophils % 0.3 % (0.1-12.0); Estimated Glomerular Filt Rate 85 ml/min (>60); GFR (African American) 102 ML/MIN (>60); Globulin 2.8 g/dL (1.3-3.2); Glucose 127 mg/dl (74-100); Hemoglobin 12.9 g/dL (14.1-18.0); Lipase 126 U/L (23-300); Lymphocytes # 2.8 K/mm3 (0.7-4.5); Lymphocytes % 31.1 % (10-50); Mean Corpuscular HGB Conc 33.8 g/dL (31.8-35.4); Mean Corpuscular Hemoglobin 28.5 pg (27.0-31.2); Mean Corpuscular Volume 84.3 fl (80-94); Mean Platelet Volume 10.7 fl (7.4-10.4); Monocytes # 0.4 K/mm3 (0.1-1.0); Monocytes % 4.1 % (1.7-9.3); Neutrophils # 5.7 K/mm3 (1.8-7.8); Neutrophils % 62.6 % (37.0-80.0); Platelet Count 393 K/mm3 (142-424); Potassium 3.8 mmoL/L (3.5-5.1); Red Blood Count 4.51 M/mm3 (4.60-6.20); Red Cell Distribution Width 13.9 % (11.5-17.5); Sodium 135 mmol/L (136-145); Total Protein,Serum 6.7 g/dl (6.3-8.2)
[2021-07-28 01:59] LABS: Troponin I < 0.01 ng/ml (0.00-0.034)
[2021-07-28 02:02] LABS: Coronavirus 19, PCR Not Detected (NotDetected); Influenza A, PCR Not Detected (NotDetected); Influenza B, PCR Not Detected (NotDetected)
[2021-07-28 02:21] VITALS: BP 114/80; PULSE 100; RESP 18; O2SAT 98
[2021-07-28 02:57] LABS: NT Pro Brain Natriuretic Pep. 12900 pg/mL (0-125)
[2021-07-28 03:06] VITALS: BP 98/64; PULSE 100; RESP 16; TEMP 36.8; O2SAT 98
== END 2021-07-28 03:07 | disposition home or self-care (01) ==
PROVIDERS: Emergency Provider Emergency Medicine; PCP Emergency Medicine
DX: R10.33 Periumbilical pain (principal); I40.0 Infective myocarditis; Z95.811 Presence of heart assist device; R63.5 Abnormal weight gain; Z68.32 Body mass index [BMI] 32.0-32.9, adult; I50.9 Heart failure, unspecified
CPT/HCPCS: 71046; 74176; 80053; 81001; 82150; 83690; 83880; 84484; 85025; 93005; 96374; 99285; C9803; J2405; U0003; U0005

== ENCOUNTER → 2021-07-30 11:09 | Outpatient (CLI) | payer OTHER, SELFPAY ==
--- NOTE | 2021-07-30 11:10 | FL_ITS ---
FINAL REPORT CLINICAL HISTORY: . nausea and vomiting FINDINGS: An upper GI and small bowel series was performed. The esophagus has an unremarkable appearance. There is no evidence of stricture. The stomach has an unremarkable appearance. There is prompt emptying of the barium into the duodenum. The duodenum has an unremarkable appearance. Sequential anterior projection images of the abdomen were then obtained. The contrast is seen within the colon by the 1 hour 30 minute radiograph. The small bowel fold pattern is normal. There is no evidence of mass or stricture. No abnormal bowel dilatation is identified. IMPRESSION: Unremarkable upper GI series and small bowel series. Authenticated and ERN
== END ==
PROVIDERS: PCP Emergency Medicine; Visit Provider Surgery
DX: R10.9 Unspecified abdominal pain (principal); R11.2 Nausea with vomiting, unspecified
CPT/HCPCS: 74246; 74248

== ENCOUNTER 2021-08-01 21:47 | Emergency (ER) | payer OTHER, SELFPAY ==
[2021-08-01 21:49] VITALS: BP 112/71; PULSE 117; RESP 18; TEMP 36.9; O2SAT 99; BMI 32.5
--- NOTE | 2021-08-01 22:50 | HMH.EDNVD ---
ED Disposition Clinical Impression: Persistent recurrent vomiting Disposition: Home, Self-Care Condition on Discharge: Good Instructions: DI for Nausea -- Adult, Nausea and Vomiting-Adult Additional Instructions: Use the medication as prescribed and follow up with primary care and surgery for your EGD this week. Prescriptions: Sucralfate [Carafate 1gm Tab] 1 gm PO ACHS 10 Days #30 tab Transmission Status: Received by [id number] Referrals: Morro King MD [Primary Care Provider] - - Critical Care Critical Care Time: No Attestation: On 08/01/21, the high probability of a clinically significant, sudden or life threatening deterioration of the following system(s) required my full and direct attention, intervention and personal management. The time I documented below is in addition to time spent performing reported procedures but includes the following listed in this critical care notation. Medical Decision Making - Medical Records Medical records reviewed: Yes: I reviewed the patient's medical records. - Jonathan Inquiry Pt receiving controlled substance: No Vital Signs: 08/01/21 21:49 08/01/21 23:46 Temperature 98.5 F 98.6 F Temperature Source Oral Oral Pulse Rate 106 H Pulse Rate [Left] 117 H Respiratory Rate 18 16 Blood Pressure 103/70 L Blood Pressure [Right Arm] 112/71 Blood Pressure Mean [Right Arm] 84 02 Sat by Pulse Oximetry 99 Oxygen Delivery Method Room Air Room Air - Lab Data Lab Results 08/01/21 22:51: WBC 7.8, RBC 4.43 L, Hgb 12.6 L, Hct 36.8 L, MCV 83.2, MCH 28.5, MCHC 34.3, RDW 13.8, Plt Count 397, MPV 9.6, Neut % (Auto) 68.7, Lymph % (Auto) 23.2, [place] % (Auto) 5.1, Eos % (Auto) 1.0, Baso % (Auto) 2.0, Neut # (Auto) 5.4, Lymph # (Auto) 1.8, [place] # (Auto) 0.4, Eos # (Auto) 0.1, Baso # (Auto) 0.2 08/01/21 22:51: Sodium 136, Potassium 3.7, Chloride 105, Carbon Dioxide 23, Anion Gap 11.7, BUN 16, Creatinine 1.00, Estimated Creat Clear 185, Estimated GFR 94, Est GFR ( Amer) 114, Glucose 102 H, Calcium 9.1, Total Bilirubin 1.7 H, AST 45, ALT 70, Alkaline Phosphatase 51, Total Protein 6.4, Albumin 3.7, Globulin 2.7, Albumin/Globulin Ratio 1.4, Lipase 124 Result diagrams: 08/01/21 22:51 08/01/21 22:51 Orders (Tests/Meds): ED MEDICATIONS Discontinued Medications Generic Name Dose Route Start Last Admin Trade Name Hazel PRN Reason Stop Dose Admin Belladonna Alkaloids 60 ml 08/01/21 22:24 08/01/21 22:34 Gi Cocktail 60ml Udc PO 08/01/21 22:25 60 ml ONCE ONE Administration Diphenhydramine HCl 25 mg 08/01/21 22:26 08/01/21 22:35 Diphenhydramine 50mg/Ml Vial IV 08/01/21 22:27 25 mg ONCE ONE Administration Prochlorperazine Edisylate 10 mg 08/01/21 22:26 08/01/21 22:35 Prochlorperazine 10mg/2ml Vial IV 08/01/21 22:27 10 mg ONCE ONE Administration Medical Decision Narrative: 20-year-old male with a history of persistent recurrent vomiting presents with another episode of vomiting throughout the day today. Patient is not on any antinausea medication. Do not feel that he would benefit from fluids given that he has advanced heart failure and his vitals are stable at this time. He is mildly tachycardic but is tachycardic on a regular basis. This is based on previous documentation and interview of the patient. Given Compazine 10 mg IV and 25 mg IV Benadryl. Labs are nonactionable. Patient was reassessed and resting comfortably will be discharged with plan for Carafate until he can have an EGD on Monday to prevent the spells of epigastric pain which are likely gastritis which starts his cyclic vomiting. Nausea/Vomiting/Diarrhea HPI - General Chief complaint: Nausea/Vomiting/Diarrhea Stated complaint: pain in stomach, vomiting Time Seen by Provider: 08/01/21 21:50 Mode of Arrival: Ambulatory Limitations: No Limitations Description of Symptoms (Recalled from ER Triage Doc. by RN): pt states that he has been having vomitin
[2021-08-01 23:04] LABS: Basophils # 0.2 K/mm3 (0-0.2); Eosinophils # 0.1 K/mm3 (0.0-0.4); Hematocrit 36.8 % (42.0-52.0); Hemoglobin 12.6 g/dL (14.1-18.0); Lymphocytes # 1.8 K/mm3 (0.7-4.5); Lymphocytes % 23.2 % (10-50); Mean Corpuscular HGB Conc 34.3 g/dL (31.8-35.4); Mean Corpuscular Hemoglobin 28.5 pg (27.0-31.2); Mean Corpuscular Volume 83.2 fl (80-94); Mean Platelet Volume 9.6 fl (7.4-10.4); Monocytes # 0.4 K/mm3 (0.1-1.0); Monocytes % 5.1 % (1.7-9.3); Neutrophils # 5.4 K/mm3 (1.8-7.8); Neutrophils % 68.7 % (37.0-80.0); Platelet Count 397 K/mm3 (142-424); Red Blood Count 4.43 M/mm3 (4.60-6.20); Red Cell Distribution Width 13.8 % (11.5-17.5); White Blood Count 7.8 K/mm3 (4.8-10.8)
[2021-08-01 23:09] LABS: Alanine Aminotransferase 70 U/L (12-78); Albumin Level 3.7 g/dl (3.5-5.0); Albumin/Globulin Ratio 1.4 (1.1-1.8); Alkaline Phosphatase 51 U/L (38-126); Anion Gap 11.7 mEq/L (5-15); Aspartate Amino Transferase 45 U/L (17-59); Bilirubin,Total 1.7 mg/dl (0.2-1.3); Blood Urea Nitrogen 16 mg/dl (9-20); Calcium 9.1 mg/dl (8.4-10.2); Carbon Dioxide 23 mmol/L (22.0-30.0); Chloride 105 mmol/L (98-107); Creatinine Clearance Estimated 185 mL/min (50-200); Estimated Glomerular Filt Rate 94 ml/min (>60); GFR (African American) 114 ML/MIN (>60); Globulin 2.7 g/dL (1.3-3.2); Glucose 102 mg/dl (74-100); Lipase 124 U/L (23-300); Potassium 3.7 mmoL/L (3.5-5.1); Sodium 136 mmol/L (136-145); Total Protein,Serum 6.4 g/dl (6.3-8.2)
[2021-08-01 23:46] VITALS: BP 103/70; PULSE 106; RESP 16; TEMP 37; O2SAT 98
== END 2021-08-01 23:49 | disposition home or self-care (01) ==
PROVIDERS: Emergency Provider Student in an Organized Health Care Education/Training Program; PCP Emergency Medicine
DX: R11.2 Nausea with vomiting, unspecified (principal); R19.7 Diarrhea, unspecified; R10.9 Unspecified abdominal pain; Z86.79 Personal history of other diseases of the circulatory system
CPT/HCPCS: 80053; 83690; 85025; 96374; 96375; 99284

== ENCOUNTER 2021-08-03 09:45 | Day surgery (SDC) | payer OTHER, SELFPAY ==
--- NOTE | 2021-08-02 08:51 | SUR.PREOP ---
multiple attempts to reach patient made by preop, anesthesia, and Dr. Sarmiento's office staff.
[2021-08-03] VITALS (9 sets, daily range): BP systolic 100–114; BP diastolic 64–81; PULSE 74–103; RESP 16–20; TEMP 36.2–36.7; O2SAT 92–100; BMI 32.7
[2021-08-03 09:53] LABS: Coronavirus 19, PCR Not Detected (NotDetected); Influenza A, PCR Not Detected (NotDetected); Influenza B, PCR Not Detected (NotDetected)
--- NOTE | 2021-08-03 10:24 | P.PN_ITS ---
[facility] Anesthesia Checklist - Patient Identification Patient Identification: Arm Band - Structural Data Admitted From: Home Planned Operative Procedure/s: EGD Consent for Planned Operative Procedure(s) Verified: Yes - NPO Status Verified Time NPO: 00:00 - Airway Assessment C-Spine Mobility Assessed: Yes TMJ Mobility Assessed: Yes Dentition: Good Dentition - Neurological Assessment Level of Consciousness: Awake Hx Seizures: No Numbness or tingling in extremities: No - Anesthesia Plan Anesthesia Risk discussed: Yes Anesthesia Plan: Verified ASA Class: IV Anesthesia Type: MAC [facility] History I have reviewed the patient's past medical history: Yes Medical History: Reports:: Cardiomyopathy, Congestive Heart Failure (EF 17%), Renal Insufficiency Denies:: Diabetes Mellitus Type 1, Diabetes Mellitus Type 2 *Have you ever received a pneumonia vaccine?: No *Have you received a flu vaccine this season?: Yes Other Medical History: Reports: Other (Viral myocarditis) Anesthesia experience/problems:: None Other Surgeries: Yes: No Previous Surgery - *Social History Smoking Status: Never smoker Tobacco Type: smokeless tobacco Alcohol Intake: current Alcohol Intake Frequency:: a few times a month Substance Use Type: denies use *Occupational Status:: employed Household Members: family *Travel in the last 8 weeks: None Family Hx:: Cancer, Coronary Artery Disease, Diabetes, Heart Attack, Hyperlipidemia, Hypertension, Stroke
--- NOTE | 2021-08-03 11:06 | HMH.SCOPE ---
- Procedure: Date: 08/03/21 Patient Date of :: 2000 Procedure Performed:: Esophagogastroduodenoscopy with biopsy Indications:: Abdominal pain Nausea and vomiting Viral myocarditis Congestive heart failure Performing Provider:: Deven Sarmiento MD Referring Provider:: Dr. Uriostegui Sedation:: Monitored anesthesia care Procedure:: After informed consent was obtained the patient was taken to the endoscopy suite. Sedation ensued after the patient was transferred to the left lateral decubitus position. Pulse, blood pressure, and oxygen saturation were monitored throughout the procedure. The endoscope was advanced beyond the duodenal bulb. Retroflexion within the gastric lumen was accomplished. The gastroscope was carefully removed and the patient was transferred to recovery in stable condition. Please see findings and specimens below for detail. Findings:: Streaking gastritis distally Sliding hiatal hernia Gastroesophageal junction at 40 cm Specimens:: Antral biopsy Recommendations:: Follow-up pathology Gallbladder ultrasound ordered Continue proton pump inhibition Follow-up UGI/SBFT and gastric emptying scan results Complications:: No immediate Estimated blood obtained (mL): 1
--- NOTE | 2021-08-03 11:37 | US_ITS ---
FINAL REPORT CLINICAL HISTORY: abd pain, nausea, vomiting FINDINGS: Sonographic images of the right upper quadrant were obtained. The pancreas is partially obscured.The liver has an unremarkable appearance. There are multiple gallstones within the gallbladder. The gallbladder wall is mildly thickened at 4 mm which is nonspecific, cholecystitis is not excluded. There is no evidence of biliary ductal dilatation.The common duct measures 3 mm. The right kidney measures 11.8 cm in length and is unremarkable. IMPRESSION: Cholelithiasis. Mild nonspecific gallbladder wall thickening, cholecystitis not excluded. If indicated, nuclear medicine hepatic biliary scan for further evaluation. Reviewed, Interpreted and Dictated by Calin Velasquez III, MD Transcribed by Tamera Gillespie Authenticated and [facility]
== END 2021-08-03 12:45 | disposition home or self-care (01) ==
LOC: OUTP 09:48
PROVIDERS: PCP Emergency Medicine; Visit Provider Surgery
PROC: 0DJ08ZZ Inspection of Upper Intestinal Tract, Via Natural or Artificial Opening Endoscopic (ICD-10-PCS; CPT 43235; principal; 2021-08-03 10:30)
DX: R10.9 Unspecified abdominal pain (principal); I40.0 Infective myocarditis; I50.9 Heart failure, unspecified; I42.9 Cardiomyopathy, unspecified; Z79.899 Other long term (current) drug therapy; K29.70 Gastritis, unspecified, without bleeding; R11.2 Nausea with vomiting, unspecified; K44.9 Diaphragmatic hernia without obstruction or gangrene
CPT/HCPCS: 43239; 76705; C9803; U0003; U0005

== ENCOUNTER 2021-08-05 01:37 | Emergency (ER) | payer OTHER, SELFPAY ==
[2021-08-05 01:49] VITALS: BP 97/71; PULSE 109; RESP 18; TEMP 36.7; O2SAT 99; BMI 32.7
[2021-08-05 02:16] LABS: Basophils # 0.2 K/mm3 (0-0.2); Basophils % 1.7 % (0.1-2.0); Eosinophils % 0.4 % (0.1-12.0); Hematocrit 40.8 % (42.0-52.0); Hemoglobin 13.2 g/dL (14.1-18.0); Lymphocytes # 2.2 K/mm3 (0.7-4.5); Lymphocytes % 21.4 % (10-50); Mean Corpuscular HGB Conc 32.3 g/dL (31.8-35.4); Mean Corpuscular Hemoglobin 27.1 pg (27.0-31.2); Mean Platelet Volume 9.9 fl (7.4-10.4); Monocytes # 0.6 K/mm3 (0.1-1.0); Monocytes % 5.4 % (1.7-9.3); Neutrophils # 7.3 K/mm3 (1.8-7.8); Neutrophils % 71.1 % (37.0-80.0); Platelet Count 436 K/mm3 (142-424); Red Blood Count 4.85 M/mm3 (4.60-6.20); Red Cell Distribution Width 13.7 % (11.5-17.5); White Blood Count 10.2 K/mm3 (4.8-10.8)
[2021-08-05 02:19] LABS: Amylase 58 U/L (30-110); Anion Gap 13.7 mEq/L (5-15); Blood Urea Nitrogen 13 mg/dl (9-20); Calcium 9.3 mg/dl (8.4-10.2); Carbon Dioxide 22 mmol/L (22.0-30.0); Chloride 104 mmol/L (98-107); Creatinine Clearance Estimated 186 mL/min (50-200); Estimated Glomerular Filt Rate 94 ml/min (>60); GFR (African American) 114 ML/MIN (>60); Glucose 104 mg/dl (74-100); Lipase 148 U/L (23-300); Magnesium 1.9 mg/dl (1.6-2.3); Potassium 3.7 mmoL/L (3.5-5.1); Sodium 136 mmol/L (136-145)
[2021-08-05 03:01] VITALS: BP 100/70; PULSE 105; RESP 18; TEMP 36.8; O2SAT 99
--- NOTE | 2021-08-05 06:33 | [facility].EDNVD ---
ED Disposition Clinical Impression: Abdominal pain Qualifiers: Abdominal location: epigastric Qualified Code(s): R10.13 - Epigastric pain Cholelithiasis Qualifiers: Cholelithiasis location: gallbladder Cholecystitis presence: without cholecystitis Biliary obstruction: without biliary obstruction Qualified Code(s): K80.20 - Calculus of gallbladder without cholecystitis without obstruction Disposition: Home, Self-Care Condition on Discharge: Good Instructions: DI for Nausea -- Adult Additional Instructions: see pcp and surg at Referrals: Morro King MD [Primary Care Provider] - - Critical Care Critical Care Time: No Attestation: On 08/05/21, the high probability of a clinically significant, sudden or life threatening deterioration of the following system(s) required my full and direct attention, intervention and personal management. The time I documented below is in addition to time spent performing reported procedures but includes the following listed in this critical care notation. Medical Decision Making - Medical Records Medical records reviewed: Yes: I reviewed the patient's medical records. - Jonathan Inquiry Pt receiving controlled substance: No Vital Signs: 08/05/21 01:49 08/05/21 03:01 Temperature 98.1 F 98.2 F Temperature Source Oral Oral Pulse Rate 105 H Pulse Rate [Apical] 109 H Respiratory Rate 18 18 Blood Pressure 100/70 L Blood Pressure [Right Arm] 97/71 L Blood Pressure Mean [Right Arm] 79 Blood Pressure Source Automatic Cuff Blood Pressure Source [Right Arm] Automatic Cuff Blood Pressure Position Sitting Blood Pressure Position [Right Arm] Sitting 02 Sat by Pulse Oximetry 99 Oxygen Delivery Method Room Air Room Air - Lab Data Lab results reviewed: Yes: I reviewed the patient's lab results. Lab Results 08/05/21 01:54: WBC 10.2, RBC 4.85, Hgb 13.2 L, Hct 40.8 L, MCV 84.0, MCH 27.1, MCHC 32.3, RDW 13.7, Plt Count 436 H, MPV 9.9, Neut % (Auto) 71.1, Lymph % (Auto) 21.4, Norton % (Auto) 5.4, Eos % (Auto) 0.4, Baso % (Auto) 1.7, Neut # (Auto) 7.3, Lymph # (Auto) 2.2, Norton # (Auto) 0.6, Eos # (Auto) 0.0, Baso # (Auto) 0.2 08/05/21 01:54: Sodium 136, Potassium 3.7, Chloride 104, Carbon Dioxide 22, Anion Gap 13.7, BUN 13, Creatinine 1.00, Estimated Creat Clear 186, Estimated GFR 94, Est GFR ( Amer) 114, Glucose 104 H, Calcium 9.3, Magnesium 1.9, Amylase 58, Lipase 148 Result diagrams: 08/05/21 01:54 08/05/21 01:54 Orders (Tests/Meds): ED MEDICATIONS Discontinued Medications Generic Name Dose Route Start Last Admin Trade Name Freq PRN Reason Stop Dose Admin Famotidine 20 mg 08/05/21 01:58 08/05/21 02:04 Famotidine 20mg/2ml Vial IV 08/05/21 01:59 20 mg ONCE ONE Administration Sodium Chloride 1,000 mls @ 999 mls/hr 08/05/21 02:00 08/05/21 02:04 Sod Chlor 0.9% 1000ml Bag IV 08/05/21 03:00 999 mls/hr .Q1H1M BALAJI Administration Ketorolac Tromethamine 30 mg 08/05/21 01:58 08/05/21 02:04 Ketorolac 30mg/Ml Vial IV 08/05/21 01:59 30 mg ONCE ONE Administration Metoclopramide HCl 10 mg 08/05/21 01:59 08/05/21 02:04 Metoclopramide Hcl 10mg/2ml Vial IVP 08/05/21 02:00 10 mg ONCE ONE Administration Ondansetron HCl 4 mg 08/05/21 01:59 08/05/21 02:04 Ondansetron 4mg/2ml Vial IV 08/05/21 02:00 4 mg ONCE ONE Administration Sodium Chloride 8 ml 08/05/21 01:59 Sodium Chloride 0.9% 10ml Vial IV 09/04/21 01:58 NEEDED PRN dilute pepcid Medical Decision Narrative: has abd pain assoc with gallstoness with hx of cardioomyathy - post-viral - has appt at Nausea/Vomiting/Diarrhea HPI - General Chief complaint: Nausea/Vomiting/Diarrhea Stated complaint: Vomiting and abdominal pain Time Seen by Provider: 08/05/21 02:00 Mode of Arrival: Ambulatory Source of Information: Patient, Parent(s), Medical Record Limitations: No Limitations Description of Symptoms (Recalled from ER Triage Doc.
== END 2021-08-05 03:05 | disposition home or self-care (01) ==
PROVIDERS: Emergency Provider Emergency Medicine; PCP Emergency Medicine
DX: R10.13 Epigastric pain (principal); R94.31 Abnormal electrocardiogram [ECG] [EKG]; R00.0 Tachycardia, unspecified; R11.2 Nausea with vomiting, unspecified; I50.9 Heart failure, unspecified; N28.9 Disorder of kidney and ureter, unspecified; I40.0 Infective myocarditis; I42.9 Cardiomyopathy, unspecified; F17.210 Nicotine dependence, cigarettes, uncomplicated; Z79.899 Other long term (current) drug therapy; Z82.49 Family history of ischemic heart disease and other diseases of the circulatory system; Z80.9 Family history of malignant neoplasm, unspecified; Z83.3 Family history of diabetes mellitus; Z83.438 Family history of other disorder of lipoprotein metabolism and other lipidemia
CPT/HCPCS: 80048; 82150; 83690; 83735; 85025; 96361; 96374; 96375; 99285; J2405